=== PATIENT | male | born 1945 | race Two or more races ===

== ENCOUNTER 2020-05-24 08:53 | Day surgery (SDC) | payer MEDICARE, MEDICAID ==
[~2020-05-24] VITALS: Ht 167.6 cm; Wt 81.7 kg
[2020-05-24] VITALS (10 sets, daily range): BP systolic 88–128; BP diastolic 41–60
[~2020-05-24 08:53] MED LIST: ATOR40TA72 PO; BENA20TA82 PO; COL0.6T PO; FURO-149 PO; GABA300C PO; GLIP5TAB13 PO; LINA5TAB4 PO; METO-395 PO; PANT40TA54 PO; POTA8CAP20 PO
[2020-05-24] MEDS ORDERED: albumin 25% 100mL bottle x 1 IV PRN (09:30)
[2020-05-24] MEDS ORDERED: normal saline 1000ml 1,000 ML IV PRN (09:30)
[2020-05-24] MEDS ORDERED: OXYC1TAB17 PO (12:07)
[2020-05-24] MEDS ORDERED: PANT40TA54 PO (12:07)
[2020-05-24] MEDS ORDERED: GABA300C PO (12:07)
[2020-05-24] MEDS ORDERED: METO-395 PO (12:07)
[2020-05-24] MEDS ORDERED: TAMSULOSIN PO (12:07)
[2020-05-24] MEDS ORDERED: GLIP5TAB13 PO (12:07)
[2020-05-24] MEDS ORDERED: COLC0.6T72 PO (12:07)
[2020-05-24] MEDS ORDERED: FLO0.4C PO (12:08)
[2020-05-24] MEDS ORDERED: ASPI-1264 PO (12:10)
== END 2020-05-24 11:45 | disposition home or self-care (01) ==
LOC: SSTAY O 08:53
PROVIDERS: ATTEND Radiology Vascular & Interventional Radiology
DX: R18.8 Other ascites (principal); K74.60 Unspecified cirrhosis of liver; I11.0 Hypertensive heart disease with heart failure; I50.9 Heart failure, unspecified; J44.9 Chronic obstructive pulmonary disease, unspecified; D64.9 Anemia, unspecified; I25.10 Atherosclerotic heart disease of native coronary artery without angina pectoris; I27.20 Pulmonary hypertension, unspecified; E11.40 Type 2 diabetes mellitus with diabetic neuropathy, unspecified; M10.9 Gout, unspecified; Z95.1 Presence of aortocoronary bypass graft; Z79.899 Other long term (current) drug therapy; Z79.84 Long term (current) use of oral hypoglycemic drugs
CPT/HCPCS: 49083; P9047

== ENCOUNTER 2020-06-08 08:10 | Day surgery (SDC) | payer MEDICARE, MEDICAID ==
[~2020-06-08] VITALS: Ht 167.6 cm; Wt 81.1 kg
[~2020-06-08 08:10] MED LIST changes: +ASPI-1264 PO; -COL0.6T PO; +COLC0.6T72 PO; +FLO0.4C PO; -LINA5TAB4 PO; +OXYC1TAB17 PO
[2020-06-08 08:40] VITALS: BP 147/73
[2020-06-08] MEDS ORDERED: albumin 25% 100mL bottle x 1 IV PRN (08:50)
[2020-06-08 09:36] VITALS: BP 161/79
[2020-06-08 09:45] VITALS: BP 154/69
[2020-06-08 10:00] VITALS: BP 152/68
[2020-06-08 10:10] VITALS: BP 153/66
== END 2020-06-08 10:15 | disposition home or self-care (01) ==
LOC: SSTAY O 08:10
PROVIDERS: ATTEND Radiology Diagnostic Radiology
DX: R18.8 Other ascites (principal); K74.60 Unspecified cirrhosis of liver; J44.9 Chronic obstructive pulmonary disease, unspecified; D64.9 Anemia, unspecified; I25.10 Atherosclerotic heart disease of native coronary artery without angina pectoris; I11.0 Hypertensive heart disease with heart failure; I50.9 Heart failure, unspecified; E78.5 Hyperlipidemia, unspecified; Z99.2 Dependence on renal dialysis; E11.40 Type 2 diabetes mellitus with diabetic neuropathy, unspecified; M10.9 Gout, unspecified; Z87.19 Personal history of other diseases of the digestive system; Z95.1 Presence of aortocoronary bypass graft; Z79.899 Other long term (current) drug therapy; Z79.84 Long term (current) use of oral hypoglycemic drugs
CPT/HCPCS: 49083

== ENCOUNTER 2020-06-15 08:15 | Day surgery (SDC) | payer MEDICARE, MEDICAID ==
[~2020-06-15] VITALS: Ht 167.6 cm; Wt 76.8 kg
[2020-06-15 08:38] VITALS: BP 157/74
[2020-06-15] MEDS ORDERED: albumin 25% 100mL bottle x 1 IV PRN (08:40)
== END 2020-06-15 09:50 | disposition home or self-care (01) ==
LOC: SSTAY O 08:15
PROVIDERS: ATTEND Radiology Diagnostic Radiology
DX: R18.8 Other ascites (principal); Z53.8 Procedure and treatment not carried out for other reasons; R14.0 Abdominal distension (gaseous); J44.9 Chronic obstructive pulmonary disease, unspecified; D64.9 Anemia, unspecified; E11.9 Type 2 diabetes mellitus without complications; I25.10 Atherosclerotic heart disease of native coronary artery without angina pectoris; I11.0 Hypertensive heart disease with heart failure; I50.9 Heart failure, unspecified; E78.5 Hyperlipidemia, unspecified; I27.20 Pulmonary hypertension, unspecified; E11.40 Type 2 diabetes mellitus with diabetic neuropathy, unspecified; M10.9 Gout, unspecified; Z95.1 Presence of aortocoronary bypass graft; Z79.899 Other long term (current) drug therapy; Z79.84 Long term (current) use of oral hypoglycemic drugs
CPT/HCPCS: 76705

== ENCOUNTER 2021-06-29 00:34 | Inpatient (IN) | payer MEDICARE, MEDICAID ==
[~2021-06-29] VITALS: Ht 162.6 cm; Wt 76.8 kg
[~2021-06-29 00:34] MED LIST changes: -BENA20TA82 PO; -METO-395 PO; -PANT40TA54 PO; -POTA8CAP20 PO
[2021-06-29] MEDS ORDERED: normal saline 1000ML IV soln IVB ONE (00:45)
[2021-06-29 01:26] LABS: BASOPHILS % (AUTO) 0.9 % (0-1); EOSINOPHILS # (AUTO) 0.1 X10'3 (0-0.9); HEMOGLOBIN 11.1 g/dl (14.0-17.9); LYMPHOCYTES # (AUTO) 0.6 X10'3 (1.1-4.8); MEAN CORPUSCULAR HEMOGLOBIN 32.4 PG (27.0-31.0); MEAN CORPUSCULAR HGB CONC 33.7 g/dL (33.0-36.5); MEAN CORPUSCULAR VOLUME 96.2 FL (78-98); MEAN PLATELET VOLUME 8.3 FL (7.4-10.4); MONOCYTES # (AUTO) 0.4 X10'3 (0-0.9); MONOCYTES % (AUTO) 11.3 % (2-12); NEUTROPHILS # (AUTO) 2.5 X10'3 (1.8-7.7); NEUTROPHILS % (AUTO) 68.8 % (42-75); PLATELET COUNT 160 X10'3 (140-440); RED BLOOD COUNT 3.43 X10'6 (4.70-6.10); RED CELL DISTRIBUTION WIDTH 15.8 % (11.5-14.5); WHITE BLOOD COUNT 3.6 X10'3 (4.5-11.0)
[2021-06-29 01:29] LABS: APTT 28 SECONDS (22-32)
[2021-06-29 01:31] LABS: ALANINE AMINOTRANSFERASE 39 U/L (12-78); ALBUMIN 3.8 G/DL (3.4-5.0); ALBUMIN/GLOBULIN RATIO 1.1 (1.1-1.5); ALKALINE PHOSPHATASE 106 IU/L (46-116); ANION GAP 8 (8-16); ASPARTATE AMINO TRANSFERASE 33 U/L (10-37); BILIRUBIN,TOTAL 0.3 MG/DL (0.1-1.0); BLOOD UREA NITROGEN 66 MG/DL (7-18); BUN/CREATININE RATIO 33.3 (5.4-32.0); CALCIUM 8.5 MG/DL (8.5-10.1); CHLORIDE 104 MMOL/L (99-107); CREATININE 1.98 MG/DL (0.60-1.10); GLUCOSE 170 MG/DL (70-104); SODIUM 133 MMOL/L (135-145); TOTAL CARBON DIOXIDE 21.1 MMOL/L (24-32); TOTAL PROTEIN 7.3 G/DL (6.4-8.2); eGFR 33 ML/MIN
[2021-06-29 01:41] LABS: POTASSIUM 6.8 MMOL/L (3.5-5.1)
[2021-06-29] MEDS ORDERED: insulin regular, human U-100 3ml vial - multi-dose IV ONE (01:50)
[2021-06-29] MEDS ORDERED: sodium bicarbonate (8.4%) 1 mEq/ml syringe IV ONE ×3 (01:50→08:30)
[2021-06-29] MEDS ORDERED: furosemide 40mg/4ml inj IV ONE (01:50)
[2021-06-29] MEDS ORDERED: dextrose 50%-water 50ml dispensing syringe IV ONE ×2 (01:50→08:30)
[2021-06-29] MEDS ORDERED: calcium chloride 100 MG/1 ML inj IV ONE (01:50)
[2021-06-29] MEDS ORDERED: insulin regular, human 10 units/0.1 ml syringe IV ONE ×2 (02:25→08:30)
[2021-06-29] MEDS ORDERED: HYDROcodone/acetaminophen 10/325mg tab PO PRN (03:15)
[2021-06-29] MEDS ORDERED: acetaminophen 325mg tablet PO PRN ×3 (03:15→15:55)
[2021-06-29] MEDS ORDERED: HYDROcodone/acetaminophen 5mg/325mg tablet PO PRN (03:15)
[2021-06-29] MEDS ORDERED: potassium CL 10mEq/100ml bag 100 ML IV PRN (03:15)
[2021-06-29] MEDS ORDERED: magnesium 2GM in 50ml NS 50 ML IV PRN (03:15)
[2021-06-29] MEDS ORDERED: magnesium 4gm in 100ml NS 100 ML IV PRN (03:15)
[2021-06-29] MEDS ORDERED: magnesium hydroxide 30ml (MOM) UD suspension PO PRN ×2 (03:15→15:55)
[2021-06-29] MEDS ORDERED: magnesium Cl slow-release 64mg tablet PO PRN (03:15)
[2021-06-29] MEDS ORDERED: mag hydrox/Alum hydrox/simeth 30ml oral suspension PO PRN (03:15)
[2021-06-29] MEDS ORDERED: potassium Cl 20 mEq SR tablet PO PRN ×2 (03:15)
[2021-06-29] MEDS ORDERED: morphine 2 MG/ML inj. syringe IV PRN (03:15)
[2021-06-29] MEDS ORDERED: insulin Lispro (HumaLOG) vial - multi-dose SQ SCH (03:20)
[2021-06-29] MEDS ORDERED: MESSAGE TO PHARMACY PO ONE (03:20)
[2021-06-29] MEDS ORDERED: DEXTROSE 15 GM of carb/4 tabs (each vial/BOTTLE has 4 tablets) PO PRN ×2 (03:20)
[2021-06-29] MEDS ORDERED: glucagon, human recombinant 1mg kit SUBCUT PRN (03:20)
[2021-06-29] MEDS ORDERED: dextrose 50%-water 50ml dispensing syringe IV PRN ×2 (03:20)
[2021-06-29 03:42] LABS: MAGNESIUM 1.7 MG/DL (1.5-2.4)
[2021-06-29] MEDS: ondansetron/PF 4mg/2ml inj IV PRN (03:57)
[2021-06-29] MEDS: morphine 2 MG/ML inj. syringe IV PRN ×4 (03:58→19:44)
[2021-06-29] MEDS ORDERED: acetylcysteine 200 MG/ml 4ml vial PO ONE (07:40)
[2021-06-29] MEDS ORDERED: sodium polystyrene sulfonate 15gm/60ml oral suspension PO ONE (07:40)
--- NOTE | 2021-06-29 07:47 | NUR ---
SPOKE TO DR EMERSON TEL ORDER FOR GIVING PO MEDS AND THEN KEEP THE PT NPO .ISTAT FOR K+,CONSENT FOR CATHETERIZATION.
[2021-06-29] MEDS ORDERED: sodium bicarbonate (8.4%) inj. 150 ML in dextrose 5%-water 1,000 ML IV ONE (07:50)
[2021-06-29 07:54] LABS: ALANINE AMINOTRANSFERASE 34 U/L (12-78); ALBUMIN 3.4 G/DL (3.4-5.0); ALKALINE PHOSPHATASE 95 IU/L (46-116); ANION GAP 6 (8-16); ASPARTATE AMINO TRANSFERASE 28 U/L (10-37); BILIRUBIN,TOTAL 0.3 MG/DL (0.1-1.0); BLOOD UREA NITROGEN 69 MG/DL (7-18); BUN/CREATININE RATIO 41.8 (5.4-32.0); CHLORIDE 107 MMOL/L (99-107); CREATININE 1.65 MG/DL (0.60-1.10); GLUCOSE 149 MG/DL (70-104); SODIUM 137 MMOL/L (135-145); TOTAL CARBON DIOXIDE 23.8 MMOL/L (24-32); TOTAL PROTEIN 6.7 G/DL (6.4-8.2); eGFR 41 ML/MIN
[2021-06-29 07:58] LABS: POTASSIUM 6.3 MMOL/L (3.5-5.1)
[2021-06-29] MEDS: docusate sod 100mg capsule PO SCH ×2 (08:00→19:42)
[2021-06-29] MEDS: K and/or MAG REPLACEMENT MC SCH ×2 (08:00→19:08)
[2021-06-29] MEDS: heparin, porcine 5000 units/ml vial SQ SCH ×2 (08:00→19:42)
[2021-06-29 09:14] LABS: ALANINE AMINOTRANSFERASE 38 U/L (12-78); ALBUMIN 3.7 G/DL (3.4-5.0); ALKALINE PHOSPHATASE 105 IU/L (46-116); ANION GAP 8 (8-16); ASPARTATE AMINO TRANSFERASE 32 U/L (10-37); BILIRUBIN,TOTAL 0.3 MG/DL (0.1-1.0); BLOOD UREA NITROGEN 66 MG/DL (7-18); BUN/CREATININE RATIO 39.3 (5.4-32.0); CALCIUM 9.4 MG/DL (8.5-10.1); CHLORIDE 107 MMOL/L (99-107); CREATININE 1.68 MG/DL (0.60-1.10); GLUCOSE 159 MG/DL (70-104); SODIUM 139 MMOL/L (135-145); TOTAL CARBON DIOXIDE 23.9 MMOL/L (24-32); TOTAL PROTEIN 7.3 G/DL (6.4-8.2); eGFR 40 ML/MIN
[2021-06-29 09:17] LABS: POTASSIUM 6.3 MMOL/L (3.5-5.1)
[2021-06-29 11:56] LABS: ALBUMIN 3.3 G/DL (3.4-5.0); ANION GAP 12 (8-16); BLOOD UREA NITROGEN 64 MG/DL (7-18); BUN/CREATININE RATIO 38.1 (5.4-32.0); CALCIUM 9.3 MG/DL (8.5-10.1); CHLORIDE 102 MMOL/L (99-107); CREATININE 1.68 MG/DL (0.60-1.10); GLUCOSE 216 MG/DL (70-104); MAGNESIUM 1.6 MG/DL (1.5-2.4); POTASSIUM 5.4 MMOL/L (3.5-5.1); SODIUM 138 MMOL/L (135-145); TOTAL CARBON DIOXIDE 24.3 MMOL/L (24-32); eGFR 40 ML/MIN
[2021-06-29] MEDS: acetylcysteine 200 MG/ml 4ml vial PO SCH (12:43)
[2021-06-29] MEDS: HYDROmorphone inj. 0.5 MG/0.5 ML DISP.SYRIN IV PRN ×2 (12:43→15:55)
[2021-06-29] MEDS ORDERED: COLC0.6T72 PO (13:10)
[2021-06-29] MEDS ORDERED: SPIR25TA5 PO (13:10)
[2021-06-29] MEDS ORDERED: ASPI-1264 PO (13:11)
[2021-06-29] MEDS ORDERED: ATOR40TA72 PO (13:11)
[2021-06-29] MEDS ORDERED: FERR324T PO (13:12)
[2021-06-29] MEDS ORDERED: ISOS30TA84 PO (13:12)
[2021-06-29] MEDS ORDERED: FLO0.4C PO (13:12)
[2021-06-29] MEDS ORDERED: FINA5TAB11 PO (13:12)
[2021-06-29] MEDS ORDERED: BENA20TA83 PO (13:13)
[2021-06-29 14:04] LABS: ISTAT HGB ART 9.9 g/dl (14.0-18.0); ISTAT Hct ART 29 %PCV (42-52); ISTAT O2 SATURATION ARTERIAL 94 % (95-98); ISTAT SOURCE ART
[2021-06-29] MEDS ORDERED: iohexol 350MG/ML 100ml bottle IV ONE ×2 (14:14→14:35)
[2021-06-29] MEDS ORDERED: iohexol 350 MG/ML 50ML vial IV ONE (14:16)
[2021-06-29] MEDS ORDERED: heparin 25,000 UNIT/250ml bag 250 ML IV ONE (14:44)
[2021-06-29] MEDS ORDERED: heparin 1,000 UNITS/NS 500ml 500 ML ONE (14:45)
[2021-06-29] MEDS ORDERED: FURO40TA4 PO (15:38)
[2021-06-29] MEDS ORDERED: GABA300C PO (15:38)
[2021-06-29 15:46] VITALS: BP 137/48
[2021-06-29] MEDS ORDERED: sodium bicarbonate (8.4%) inj. 150 MEQ in dextrose 5%-water 1,000 ML IV ONE (15:55)
[2021-06-29] MEDS ORDERED: acetylcysteine 200 MG/ml 4ml vial PO PRN (15:56)
[2021-06-29] MEDS ORDERED: ERGO500056 PO (16:00)
[2021-06-29 16:15] VITALS: BP 120/33
[2021-06-29] MEDS ORDERED: ALLO300T8 PO (16:16)
[2021-06-29 16:30] VITALS: BP 119/57
[2021-06-29 16:45] VITALS: BP 129/77
--- NOTE | 2021-06-29 16:51 | NUR ---
Correcting charting for radial cath care. Gaby is on the left radial, not right Addendum: 06/29/21 at 1653 by Franc Boggs RN Amended: Links added.
[2021-06-29 18:00] VITALS: BP 129/49
[2021-06-29] MEDS: gabapentin 300mg capsule PO SCH (19:42)
[2021-06-29] MEDS: tamsulosin 0.4mg capsule PO SCH (19:42)
[2021-06-29] MEDS: furosemide 40mg tablet PO SCH (19:43)
[2021-06-29] MEDS: lisinopril 20mg tablet PO SCH (19:44)
[2021-06-29 22:00] VITALS: BP 129/60
[2021-06-29] MEDS: HYDROcodone/acetaminophen 10/325mg tab PO PRN (22:13)
[2021-06-29] MEDS: insulin glargine (Lantus) pen - multi-dose SQ SCH (22:15)
[2021-06-30] VITALS (14 sets, daily range): BP systolic 106–155; BP diastolic 37–90
[2021-06-30] MEDS: OXAZEpam 15mg capsule PO PRN (01:25)
[2021-06-30] MEDS: HYDROmorphone inj. 0.5 MG/0.5 ML DISP.SYRIN IV PRN ×2 (01:27→13:30)
[2021-06-30 06:12] LABS: BASOPHILS % (AUTO) 0.8 % (0-1); EOSINOPHILS # (AUTO) 0.1 X10'3 (0-0.9); EOSINOPHILS % (AUTO) 2.9 % (0-6); HEMATOCRIT 29.4 % (42.0-52.0); HEMOGLOBIN 9.9 g/dl (14.0-17.9); LYMPHOCYTES # (AUTO) 0.5 X10'3 (1.1-4.8); LYMPHOCYTES % (AUTO) 16.7 % (21-51); MEAN CORPUSCULAR HEMOGLOBIN 32.2 PG (27.0-31.0); MEAN CORPUSCULAR HGB CONC 33.6 g/dL (33.0-36.5); MEAN CORPUSCULAR VOLUME 95.9 FL (78-98); MEAN PLATELET VOLUME 8.4 FL (7.4-10.4); MONOCYTES # (AUTO) 0.3 X10'3 (0-0.9); MONOCYTES % (AUTO) 10.8 % (2-12); NEUTROPHILS % (AUTO) 68.8 % (42-75); PLATELET COUNT 145 X10'3 (140-440); RED BLOOD COUNT 3.07 X10'6 (4.70-6.10); RED CELL DISTRIBUTION WIDTH 16.3 % (11.5-14.5); WHITE BLOOD COUNT 2.9 X10'3 (4.5-11.0)
[2021-06-30 06:43] LABS: % IRON SATURATION 23 % (11-46); IRON 59 UG/DL (53-167); TOTAL IRON BINDING CAPACITY 255 UG/DL (259-388)
[2021-06-30 06:53] LABS: ANISOCYTOSIS 1+; PLATELET ESTIMATE NORMAL; TOTAL CELLS COUNTED 100
[2021-06-30 06:54] LABS: ALANINE AMINOTRANSFERASE 31 U/L (12-78); ALBUMIN 3.2 G/DL (3.4-5.0); ALBUMIN/GLOBULIN RATIO 1.1 (1.1-1.5); ALKALINE PHOSPHATASE 87 IU/L (46-116); ANION GAP 6 (8-16); ASPARTATE AMINO TRANSFERASE 28 U/L (10-37); BILIRUBIN,TOTAL 0.3 MG/DL (0.1-1.0); BLOOD UREA NITROGEN 60 MG/DL (7-18); CALCIUM 8.5 MG/DL (8.5-10.1); CHLORIDE 106 MMOL/L (99-107); CHOL/HDL RATIO 2.3 (0.00-4.99); CHOLESTEROL 88 MG/DL (0-200); CREATININE 1.43 MG/DL (0.60-1.10); FERRITIN 260 NG/ML (26-388); GLUCOSE 109 MG/DL (70-104); HDL CHOLESTEROL 39 MG/DL (35-60); LDL CHOLESTEROL 35 MG/DL (50-100); POTASSIUM 5.6 MMOL/L (3.5-5.1); SODIUM 142 MMOL/L (135-145); TOTAL CARBON DIOXIDE 30.5 MMOL/L (24-32); TOTAL PROTEIN 6.2 G/DL (6.4-8.2); TRIGLYCERIDES 96 MG/DL (20-135); eGFR 48 ML/MIN
[2021-06-30] MEDS: atorvastatin 20mg tablet PO SCH (07:48)
[2021-06-30] MEDS: tamsulosin 0.4mg capsule PO SCH ×2 (07:48→20:26)
[2021-06-30] MEDS: HYDROcodone/acetaminophen 10/325mg tab PO PRN ×3 (07:48→21:20)
[2021-06-30] MEDS: clopidogrel 75mg tablet PO SCH (07:48)
[2021-06-30] MEDS: aspirin 325mg tablet PO SCH (07:48)
[2021-06-30] MEDS: furosemide 40mg tablet PO SCH ×2 (07:48→20:26)
[2021-06-30] MEDS: gabapentin 300mg capsule PO SCH ×3 (07:48→21:20)
[2021-06-30] MEDS: docusate sod 100mg capsule PO SCH ×2 (07:48→20:26)
[2021-06-30] MEDS: colchicine 0.6mg tablet PO SCH (07:49)
[2021-06-30] MEDS: K and/or MAG REPLACEMENT MC SCH ×2 (08:00→20:00)
[2021-06-30] MEDS: acetylcysteine 200 MG/ml 4ml vial PO SCH ×2 (08:00→23:09)
[2021-06-30] MEDS: ferrous gluconate 324mg tablet PO SCH (08:04)
[2021-06-30] MEDS: isosorbide mononitrate 30mg tab.SR.24H PO SCH (08:04)
[2021-06-30] MEDS: lisinopril 20mg tablet PO SCH ×2 (08:06→20:29)
[2021-06-30] MEDS: heparin, porcine 5000 units/ml vial SQ SCH ×2 (08:07→20:00)
[2021-06-30] MEDS: finasteride 5mg tablet PO SCH (09:53)
--- NOTE | 2021-06-30 11:13 | NUR ---
Noted pt with T2DM, well controlled with A1c 7.0%. Written DM education with RD contact information placed in patient's chart. Will remain available. Addendum: 06/30/21 at [address] Amended: Links added.
[2021-06-30] MEDS ORDERED: LIDOcaine 2% 10ml TOPICAL JELLY (Urojet) TP ONE (22:10)
[2021-06-30] MEDS ORDERED: DEXTROSE 15 GM of carb/4 tabs (each vial/BOTTLE has 4 tablets) PO PRN ×2 (22:10)
[2021-06-30] MEDS ORDERED: dextrose 50%-water 50ml dispensing syringe IV PRN ×2 (22:10)
[2021-06-30] MEDS ORDERED: normal saline 1000ml 1,000 ML IV SCH (22:10)
[2021-06-30] MEDS ORDERED: MESSAGE TO PHARMACY PO ONE (22:10)
[2021-06-30] MEDS ORDERED: insulin Lispro (HumaLOG) vial - multi-dose SQ SCH (22:10)
[2021-06-30] MEDS ORDERED: glucagon, human recombinant 1mg kit SUBCUT PRN (22:10)
[2021-06-30] MEDS ORDERED: normal saline 1000ml 1,000 ML IV ONE (22:54)
[2021-06-30] MEDS: insulin glargine (Lantus) pen - multi-dose SQ SCH (23:13)
[2021-07-01] VITALS (8 sets, daily range): BP systolic 116–150; BP diastolic 42–56
[2021-07-01] MEDS: HYDROmorphone inj. 0.5 MG/0.5 ML DISP.SYRIN IV PRN ×3 (00:54→16:57)
[2021-07-01] MEDS: HYDROcodone/acetaminophen 10/325mg tab PO PRN (05:46)
--- NOTE | 2021-07-01 06:43 | NUR ---
Problems reprioritized. Patient report given, questions answered & plan of care reviewed with Main TURNER.
[2021-07-01 06:49] LABS: BASOPHILS % (AUTO) 0.5 % (0-1); EOSINOPHILS # (AUTO) 0.1 X10'3 (0-0.9); EOSINOPHILS % (AUTO) 4.1 % (0-6); HEMOGLOBIN 8.8 g/dl (14.0-17.9); LYMPHOCYTES # (AUTO) 0.5 X10'3 (1.1-4.8); LYMPHOCYTES % (AUTO) 16.3 % (21-51); MEAN CORPUSCULAR HEMOGLOBIN 31.4 PG (27.0-31.0); MEAN CORPUSCULAR HGB CONC 32.5 g/dL (33.0-36.5); MEAN CORPUSCULAR VOLUME 96.9 FL (78-98); MEAN PLATELET VOLUME 8.6 FL (7.4-10.4); MONOCYTES # (AUTO) 0.4 X10'3 (0-0.9); MONOCYTES % (AUTO) 12.4 % (2-12); NEUTROPHILS # (AUTO) 2.2 X10'3 (1.8-7.7); NEUTROPHILS % (AUTO) 66.7 % (42-75); PLATELET COUNT 137 X10'3 (140-440); RED BLOOD COUNT 2.79 X10'6 (4.70-6.10); WHITE BLOOD COUNT 3.3 X10'3 (4.5-11.0)
[2021-07-01 07:27] LABS: ALANINE AMINOTRANSFERASE 26 U/L (12-78); ALBUMIN 2.9 G/DL (3.4-5.0); ALKALINE PHOSPHATASE 76 IU/L (46-116); ANION GAP 8 (8-16); ASPARTATE AMINO TRANSFERASE 24 U/L (10-37); BILIRUBIN,TOTAL 0.3 MG/DL (0.1-1.0); BLOOD UREA NITROGEN 63 MG/DL (7-18); CALCIUM 7.9 MG/DL (8.5-10.1); CHLORIDE 103 MMOL/L (99-107); CHOL/HDL RATIO 2.3 (0.00-4.99); CHOLESTEROL 73 MG/DL (0-200); CREATININE 2.52 MG/DL (0.60-1.10); GLUCOSE 118 MG/DL (70-104); HDL CHOLESTEROL 32 MG/DL (35-60); LDL CHOLESTEROL 30 MG/DL (50-100); POTASSIUM 5.9 MMOL/L (3.5-5.1); SODIUM 139 MMOL/L (135-145); TOTAL CARBON DIOXIDE 28.3 MMOL/L (24-32); TOTAL PROTEIN 5.8 G/DL (6.4-8.2); TRIGLYCERIDES 110 MG/DL (20-135); eGFR 25 ML/MIN
[2021-07-01] MEDS: docusate sod 100mg capsule PO SCH ×2 (08:00→20:00)
[2021-07-01] MEDS: K and/or MAG REPLACEMENT MC SCH ×2 (08:00→19:10)
[2021-07-01 09:55] LABS: ISTAT Hct MIX 30 %PCV (42-52); ISTAT O2 SATURATION MIX VENOUS 66 % (60-80); ISTAT SOURCE VEN
[2021-07-01] MEDS: aspirin 325mg tablet PO SCH (10:04)
[2021-07-01] MEDS: isosorbide mononitrate 30mg tab.SR.24H PO SCH (10:04)
[2021-07-01] MEDS: atorvastatin 20mg tablet PO SCH (10:04)
[2021-07-01] MEDS: ferrous gluconate 324mg tablet PO SCH (10:05)
[2021-07-01] MEDS: clopidogrel 75mg tablet PO SCH (10:05)
[2021-07-01] MEDS: tamsulosin 0.4mg capsule PO SCH ×2 (10:05→19:12)
[2021-07-01 10:20] LABS: ISTAT K 4.4 mmol/L (3.5-5.1)
[2021-07-01 10:21] LABS: ISTAT CREATININE 1.2 mg/dL (0.8-1.3); POC BUN/CREATININE RATIO 40.8 (5.4-32.0)
[2021-07-01 10:23] LABS: ISTAT HGB 8.8 g/dl (14.0-18.0); ISTAT IONIZED CALCIUM 0.93 mmol/L (1.03-1.32)
[2021-07-01] MEDS: heparin, porcine 5000 units/ml vial SQ SCH ×2 (10:23→19:13)
[2021-07-01] MEDS: colchicine 0.6mg tablet PO SCH (10:24)
[2021-07-01] MEDS: gabapentin 300mg capsule PO SCH ×3 (10:24→21:25)
[2021-07-01] MEDS: finasteride 5mg tablet PO SCH (10:25)
[2021-07-01] MEDS: acetylcysteine 200 MG/ml 4ml vial PO SCH ×2 (10:25→19:18)
[2021-07-01] MEDS: normal saline 1000ml 1,000 ML IV SCH ×2 (10:26→19:23)
--- NOTE | 2021-07-01 18:00 | NUR ---
Patient in room PCU 3018. I have received report from МАРИНА TURNER and had the opportunity to ask questions and assume patient care.
[2021-07-01] MEDS ORDERED: insulin glargine (Lantus) pen - multi-dose SQ SCH (21:00)
[2021-07-01] MEDS: insulin glargine (Lantus) pen - multi-dose SQ SCH (21:31)
[2021-07-02 02:00] VITALS: BP 136/65
[2021-07-02] MEDS: HYDROcodone/acetaminophen 10/325mg tab PO PRN ×3 (03:11→19:20)
[2021-07-02] MEDS: normal saline 1000ml 1,000 ML IV SCH (05:55)
[2021-07-02 06:00] VITALS: BP 99/49
[2021-07-02 06:32] LABS: ALANINE AMINOTRANSFERASE 25 U/L (12-78); ALBUMIN 2.8 G/DL (3.4-5.0); ALBUMIN/GLOBULIN RATIO 0.9 (1.1-1.5); ALKALINE PHOSPHATASE 80 IU/L (46-116); ANION GAP 11 (8-16); ASPARTATE AMINO TRANSFERASE 26 U/L (10-37); BILIRUBIN,TOTAL 0.3 MG/DL (0.1-1.0); BLOOD UREA NITROGEN 75 MG/DL (7-18); CALCIUM 7.9 MG/DL (8.5-10.1); CHLORIDE 98 MMOL/L (99-107); CREATININE 4.41 MG/DL (0.60-1.10); GLUCOSE 110 MG/DL (70-104); SODIUM 133 MMOL/L (135-145); TOTAL CARBON DIOXIDE 23.7 MMOL/L (24-32); TOTAL PROTEIN 5.8 G/DL (6.4-8.2); eGFR 13 ML/MIN
--- NOTE | 2021-07-02 06:34 | NUR ---
Problems reprioritized. Patient report given, questions answered & plan of care reviewed with KIRSTIN TURNER.
[2021-07-02 06:36] LABS: POTASSIUM 7.2 MMOL/L (3.5-5.1)
[2021-07-02 06:37] LABS: BASOPHILS % (AUTO) 0.4 % (0-1); EOSINOPHILS # (AUTO) 0.1 X10'3 (0-0.9); EOSINOPHILS % (AUTO) 2.2 % (0-6); HEMATOCRIT 26.1 % (42.0-52.0); HEMOGLOBIN 8.7 g/dl (14.0-17.9); LYMPHOCYTES # (AUTO) 0.4 X10'3 (1.1-4.8); LYMPHOCYTES % (AUTO) 8.4 % (21-51); MEAN CORPUSCULAR HEMOGLOBIN 32.6 PG (27.0-31.0); MEAN CORPUSCULAR HGB CONC 33.1 g/dL (33.0-36.5); MEAN CORPUSCULAR VOLUME 98.3 FL (78-98); MEAN PLATELET VOLUME 8.2 FL (7.4-10.4); MONOCYTES # (AUTO) 0.4 X10'3 (0-0.9); MONOCYTES % (AUTO) 8.3 % (2-12); NEUTROPHILS # (AUTO) 3.5 X10'3 (1.8-7.7); NEUTROPHILS % (AUTO) 80.7 % (42-75); PLATELET COUNT 114 X10'3 (140-440); RED BLOOD COUNT 2.66 X10'6 (4.70-6.10); RED CELL DISTRIBUTION WIDTH 15.8 % (11.5-14.5); WHITE BLOOD COUNT 4.3 X10'3 (4.5-11.0)
--- NOTE | 2021-07-02 07:28 | NUR ---
Marla Phillip K+= 7.2 Lab says specimen in good. 97.9 67 18 98 RA 99/49 Dr. Petty was notified and ordered Hyperkalemia protocol However, We need specifics for Hyperkalemia treatment. Thank You [facility]. [id number]
[2021-07-02] MEDS: tamsulosin 0.4mg capsule PO SCH ×2 (07:31→19:20)
[2021-07-02] MEDS: gabapentin 300mg capsule PO SCH (07:31)
[2021-07-02] MEDS: docusate sod 100mg capsule PO SCH ×2 (07:31→19:20)
[2021-07-02] MEDS: ferrous gluconate 324mg tablet PO SCH (07:31)
[2021-07-02] MEDS: atorvastatin 20mg tablet PO SCH (07:32)
[2021-07-02] MEDS: clopidogrel 75mg tablet PO SCH (07:33)
[2021-07-02] MEDS ORDERED: sodium bicarbonate (8.4%) 1 mEq/ml syringe IV ONE (07:50)
[2021-07-02] MEDS ORDERED: sodium bicarbonate (8.4%) inj. 100 MEQ in sodium chloride 0.45% 900 ML IV SCH (07:50)
[2021-07-02] MEDS ORDERED: furosemide 40mg/4ml inj IV SCH (08:00)
[2021-07-02] MEDS: K and/or MAG REPLACEMENT MC SCH ×2 (08:00→19:21)
[2021-07-02] MEDS ORDERED: sodium bicarbonate (8.4%) inj. 100 MEQ in sodium chloride 0.45% 1,000 ML IV SCH (08:05)
[2021-07-02 08:55] LABS: CLARITY,URINE SLIGHTLY CLOUDY (Clear); COLOR,URINE YELLOW (Yellow); GLUCOSE, URINE NEGATIVE (Neg); KETONES,URINE TRACE mg/dl (Neg); LEUKOCYTE ESTERASE ,URINE SMALL (Neg); NITRITES, URINE NEGATIVE (Neg); OCCULT BLOOD,URINE NEGATIVE (Neg); PH,URINE 5.5 (4.8-8.0); PROTEIN,URINE TRACE mg/dl (Neg); UROBILINOGEN,URINE 0.2 E.U/dL (0.2-1.0)
[2021-07-02 09:01] LABS: UA COLLECTION TYPE CLN CATCH MIDSTREAM
[2021-07-02 09:02] LABS: BACTERIA,URINE NONE SEEN /HPF (Neg); MUCUS STRANDS NONE SEEN /LPF (Neg); RBC,URINE NONE SEEN /HPF (0-2); SQUAMOUS EPITHELIAL CELL,UR NONE SEEN /LPF (FEW); WBC,URINE 0-4 /HPF (0-4)
[2021-07-02 09:16] LABS: TOTAL PROTEIN,URINE RANDOM 50.9 MG/DL
[2021-07-02 09:29] LABS: UA EOSINOPHILS RARE EOS /HPF
[2021-07-02] MEDS: acetylcysteine 200 MG/ml 4ml vial PO SCH (09:48)
[2021-07-02] MEDS: finasteride 5mg tablet PO SCH (09:48)
[2021-07-02] MEDS: heparin, porcine 5000 units/ml vial SQ SCH ×2 (09:56→19:19)
[2021-07-02] MEDS: isosorbide mononitrate 30mg tab.SR.24H PO SCH (09:58)
[2021-07-02] MEDS: aspirin 325mg tablet PO SCH (09:58)
[2021-07-02] MEDS: fludrocortisone acetate 0.1mg tablet PO SCH ×2 (09:59→19:20)
[2021-07-02] MEDS: HYDROmorphone inj. 0.5 MG/0.5 ML DISP.SYRIN IV PRN (10:05)
[2021-07-02 11:00] VITALS: BP 105/95
[2021-07-02 12:24] LABS: ALBUMIN 2.5 G/DL (3.4-5.0); ANION GAP 11 (8-16); BLOOD UREA NITROGEN 83 MG/DL (7-18); BUN/CREATININE RATIO 16.9 (5.4-32.0); CHLORIDE 98 MMOL/L (99-107); CREATININE 4.92 MG/DL (0.60-1.10); GLUCOSE 165 MG/DL (70-104); SODIUM 134 MMOL/L (135-145); TOTAL CARBON DIOXIDE 24.9 MMOL/L (24-32); eGFR 12 ML/MIN
[2021-07-02 12:25] LABS: POTASSIUM 6.7 MMOL/L (3.5-5.1)
[2021-07-02] MEDS: furosemide 40mg/4ml inj IV SCH ×2 (13:57→20:45)
[2021-07-02] MEDS: colchicine 0.6mg tablet PO SCH (14:13)
[2021-07-02 15:00] VITALS: BP 124/46
[2021-07-02] MEDS: albuterol 2.5 MG/3 ML nebule NEB SCH ×3 (15:07→23:40)
[2021-07-02 18:30] VITALS: BP 128/44
--- NOTE | 2021-07-02 18:44 | NUR ---
Patient in room U 3018. I have received report from YUE FULTON and had the opportunity to ask questions and assume patient care. Addendum: 07/02/21 at 1845 by Peggy Carter RN Amended: Links added.
[2021-07-02 20:45] LABS: ALBUMIN 2.8 G/DL (3.4-5.0); ANION GAP 16 (8-16); BLOOD UREA NITROGEN 88 MG/DL (7-18); BUN/CREATININE RATIO 16.1 (5.4-32.0); CHLORIDE 94 MMOL/L (99-107); CREATININE 5.48 MG/DL (0.60-1.10); GLUCOSE 161 MG/DL (70-104); SODIUM 132 MMOL/L (135-145); TOTAL CARBON DIOXIDE 22.4 MMOL/L (24-32); eGFR 10 ML/MIN
[2021-07-02 20:51] LABS: POTASSIUM 6.9 MMOL/L (3.5-5.1)
--- NOTE | 2021-07-02 21:25 | NUR ---
pt given 6 units lantus due to increase in his bun and creatine and severe decrease in his gfr now down to 12.
[2021-07-02] MEDS: insulin glargine (Lantus) pen - multi-dose SQ SCH (21:31)
[2021-07-02] MEDS ORDERED: PATIROMER CALCIUM SORBITEX 8.4 GM POWD.PACK PO ONE (21:35)
[2021-07-02 22:00] VITALS: BP 106/58
--- NOTE | 2021-07-02 22:00 | NUR ---
pt took the 3 packets of valkadi Petty ordered to bring potassium down.
--- NOTE | 2021-07-02 23:26 | NUR ---
resting on his side without changes.
[2021-07-03] VITALS (7 sets, daily range): BP systolic 91–144; BP diastolic 42–68
[2021-07-03] MEDS: albuterol 2.5 MG/3 ML nebule NEB SCH ×5 (03:05→19:53)
--- NOTE | 2021-07-03 05:51 | NUR ---
resting on his side eyes closed
--- NOTE | 2021-07-03 06:12 | NUR ---
Problems reprioritized. Patient report given, questions answered & plan of care reviewed with YUE GUIDO. Addendum: 07/03/21 at 0613 by Peggy Carter RN Amended: Links added.
--- NOTE | 2021-07-03 06:30 | NUR ---
Patient in room PCU 3018. I have received report from YUE Woods and had the opportunity to ask questions and assume patient care.
[2021-07-03 07:20] LABS: BASOPHILS % (AUTO) 0.3 % (0-1); EOSINOPHILS # (AUTO) 0.1 X10'3 (0-0.9); EOSINOPHILS % (AUTO) 1.9 % (0-6); HEMATOCRIT 25.1 % (42.0-52.0); HEMOGLOBIN 8.5 g/dl (14.0-17.9); LYMPHOCYTES # (AUTO) 0.4 X10'3 (1.1-4.8); LYMPHOCYTES % (AUTO) 8.8 % (21-51); MEAN CORPUSCULAR HEMOGLOBIN 32.5 PG (27.0-31.0); MEAN CORPUSCULAR HGB CONC 33.9 g/dL (33.0-36.5); MEAN CORPUSCULAR VOLUME 95.9 FL (78-98); MEAN PLATELET VOLUME 8.5 FL (7.4-10.4); MONOCYTES # (AUTO) 0.5 X10'3 (0-0.9); MONOCYTES % (AUTO) 11.1 % (2-12); NEUTROPHILS # (AUTO) 3.3 X10'3 (1.8-7.7); NEUTROPHILS % (AUTO) 77.9 % (42-75); PLATELET COUNT 112 X10'3 (140-440); RED BLOOD COUNT 2.62 X10'6 (4.70-6.10); RED CELL DISTRIBUTION WIDTH 15.8 % (11.5-14.5); WHITE BLOOD COUNT 4.2 X10'3 (4.5-11.0)
[2021-07-03 07:35] LABS: ALANINE AMINOTRANSFERASE 25 U/L (12-78); ALBUMIN 2.9 G/DL (3.4-5.0); ALBUMIN/GLOBULIN RATIO 0.9 (1.1-1.5); ALKALINE PHOSPHATASE 78 IU/L (46-116); ANION GAP 12 (8-16); ASPARTATE AMINO TRANSFERASE 27 U/L (10-37); BILIRUBIN,TOTAL 0.3 MG/DL (0.1-1.0); BLOOD UREA NITROGEN 97 MG/DL (7-18); BUN/CREATININE RATIO 15.6 (5.4-32.0); CHLORIDE 97 MMOL/L (99-107); CREATININE 6.22 MG/DL (0.60-1.10); GLUCOSE 112 MG/DL (70-104); LACTATE DEHYDROGENASE 214 U/L (85-227); SODIUM 134 MMOL/L (135-145); TOTAL CARBON DIOXIDE 25.3 MMOL/L (24-32); eGFR 9 ML/MIN
[2021-07-03 07:44] LABS: POTASSIUM 6.9 MMOL/L (3.5-5.1)
--- NOTE | 2021-07-03 07:47 | NUR ---
Paged hospitalist: PAGER ID: [phone] MESSAGE: Room: [facility]: Derek: Potassium is 6.9. -YUE Junior [id number]
[2021-07-03] MEDS: heparin, porcine 5000 units/ml vial SQ SCH ×2 (08:00→19:42)
[2021-07-03] MEDS: K and/or MAG REPLACEMENT MC SCH ×2 (08:00→20:00)
[2021-07-03] MEDS: HYDROmorphone inj. 0.5 MG/0.5 ML DISP.SYRIN IV PRN ×2 (08:17→12:39)
[2021-07-03] MEDS: colchicine 0.6mg tablet PO SCH (08:18)
[2021-07-03] MEDS: fludrocortisone acetate 0.1mg tablet PO SCH ×2 (08:18→19:42)
[2021-07-03] MEDS: finasteride 5mg tablet PO SCH (08:18)
[2021-07-03] MEDS: furosemide 40mg/4ml inj IV SCH ×3 (08:18→21:00)
[2021-07-03] MEDS: aspirin 325mg tablet PO SCH (08:18)
[2021-07-03] MEDS: atorvastatin 20mg tablet PO SCH (08:19)
[2021-07-03] MEDS: docusate sod 100mg capsule PO SCH ×2 (08:19→19:44)
[2021-07-03] MEDS: tamsulosin 0.4mg capsule PO SCH ×2 (08:19→19:42)
[2021-07-03] MEDS: clopidogrel 75mg tablet PO SCH (08:19)
[2021-07-03] MEDS: ferrous gluconate 324mg tablet PO SCH (08:20)
[2021-07-03] MEDS: isosorbide mononitrate 30mg tab.SR.24H PO SCH (08:20)
[2021-07-03] MEDS ORDERED: heparin 1,000unit/ml 10ml vial 10 ML IV ONE (08:35)
[2021-07-03] MEDS ORDERED: EPOETIN ALFA-EPBX 20,000 UNIT/ML 1 ML MDV IV ONE (08:35)
[2021-07-03] MEDS ORDERED: heparin 1,000 units/ml 10ml inj IV ONE ×2 (08:35→08:55)
[2021-07-03] MEDS ORDERED: heparin 1,000 units/ml 10ml inj HE ONE ×2 (08:40→10:35)
[2021-07-03] MEDS ORDERED: heparin 1,000 units/ml 10ml inj SQ ONE (08:55)
[2021-07-03] MEDS ORDERED: LIDOcaine 1% (10mg/ml) 2ml vial ONE ×2 (09:38→09:40)
[2021-07-03] MEDS ORDERED: vancomycin/NS 1 GM ADD-VANTAGE 250 ML IV STA (09:56)
[2021-07-03] MEDS ORDERED: vancomycin/NS 1 GM ADD-VANTAGE 250 ML IV ONE (10:00)
[2021-07-03] MEDS ORDERED: morphine 2 MG/ML inj. syringe IV PRN (10:00)
[2021-07-03] MEDS ORDERED: vancomycin/NS 1 GM ADD-VANTAGE 250 ML IV PRN (10:05)
--- NOTE | 2021-07-03 10:47 | NUR ---
Initial: pt admitted w/ CAD, MAK w/ CKD, and hyperkalemia per EMR. Currently on Heart Healthy diet w/ 100% intake though dropped down to 0-25% yesterday 07/02, possibly related to some nausea. Would consider adding Renal diet and removing Heart healthy given elevated Potassium and renal function, and lipids are low. Pt to start HD today per MD note. Pt sleeping at time of assessment and did not wake to verbal cues. LBM 07/02 receiving routine colace. Will continue to monitor for nutrition intervention needs Recs: 1. Consider adding Renal diet and removing Heart Healthy 2. Monitor need for ONS, starting HD 3. Bowel care per rx 4. Scaled wts w/ HD Addendum: 07/03/21 at [address] Amended: Links added.
[2021-07-03 12:15] LABS: ALBUMIN 2.6 G/DL (3.4-5.0); ANION GAP 8 (8-16); BLOOD UREA NITROGEN 95 MG/DL (7-18); BUN/CREATININE RATIO 15.4 (5.4-32.0); CALCIUM 7.9 MG/DL (8.5-10.1); CHLORIDE 96 MMOL/L (99-107); CREATININE 6.18 MG/DL (0.60-1.10); GLUCOSE 120 MG/DL (70-104); SODIUM 130 MMOL/L (135-145); TOTAL CARBON DIOXIDE 26.4 MMOL/L (24-32); eGFR 9 ML/MIN
[2021-07-03 12:20] LABS: POTASSIUM 6.6 MMOL/L (3.5-5.1)
--- NOTE | 2021-07-03 12:34 | NUR ---
Paged hospitalist: PAGER ID: [phone] MESSAGE: Room: 3018A: Critical lab value: potassium 6.6. YUE Junior [id number]
--- NOTE | 2021-07-03 13:14 | NUR ---
Paged hospitalist: PAGER ID: [phone] MESSAGE: Room: 3018A: Derek: Pt's 1300 dose of furosemide is being held due to dialysis and a BP of 96/59. YUE Junior 9658
[2021-07-03] MEDS: ondansetron/PF 4mg/2ml inj IV PRN (16:04)
--- NOTE | 2021-07-03 18:40 | NUR ---
Problems reprioritized. Patient report given, questions answered & plan of care reviewed with YUE Pfeiffer.
[2021-07-03 20:20] LABS: ALBUMIN 2.7 G/DL (3.4-5.0); ANION GAP 13 (8-16); BLOOD UREA NITROGEN 44 MG/DL (7-18); BUN/CREATININE RATIO 11.3 (5.4-32.0); CALCIUM 8.4 MG/DL (8.5-10.1); CHLORIDE 96 MMOL/L (99-107); CREATININE 3.89 MG/DL (0.60-1.10); GLUCOSE 138 MG/DL (70-104); SODIUM 136 MMOL/L (135-145); TOTAL CARBON DIOXIDE 26.9 MMOL/L (24-32); eGFR 15 ML/MIN
[2021-07-03] MEDS: insulin glargine (Lantus) pen - multi-dose SQ SCH (21:36)
[2021-07-03] MEDS: HYDROcodone/acetaminophen 10/325mg tab PO PRN (23:07)
[2021-07-04 02:00] VITALS: BP 119/38
[2021-07-04] MEDS: VANCOMYCIN LEVEL IV SCH (03:00)
[2021-07-04] MEDS: albuterol 2.5 MG/3 ML nebule NEB SCH ×7 (03:26→23:42)
[2021-07-04 06:00] VITALS: BP 98/44
--- NOTE | 2021-07-04 06:30 | NUR ---
Patient in room PCU 3018. I have received report from YUE Pfeiffer and had the opportunity to ask questions and assume patient care.
--- NOTE | 2021-07-04 07:48 | NUR ---
PT REFUSED 0800 SVN. BS CLEAR, ROO0M AIR SPO2 94% WITHOUT SOB
[2021-07-04] MEDS: docusate sod 100mg capsule PO SCH ×2 (08:00→20:45)
[2021-07-04] MEDS: heparin, porcine 5000 units/ml vial SQ SCH ×2 (08:00→20:46)
[2021-07-04] MEDS: isosorbide mononitrate 30mg tab.SR.24H PO SCH (08:00)
[2021-07-04] MEDS: K and/or MAG REPLACEMENT MC SCH ×2 (08:00→18:58)
[2021-07-04] MEDS: furosemide 40mg/4ml inj IV SCH ×3 (08:00→20:46)
[2021-07-04] MEDS: fludrocortisone acetate 0.1mg tablet PO SCH ×2 (09:02→20:45)
[2021-07-04] MEDS: HYDROmorphone inj. 0.5 MG/0.5 ML DISP.SYRIN IV PRN ×3 (09:02→23:34)
[2021-07-04] MEDS: aspirin 325mg tablet PO SCH (09:03)
[2021-07-04] MEDS: ferrous gluconate 324mg tablet PO SCH (09:03)
[2021-07-04] MEDS: atorvastatin 20mg tablet PO SCH (09:03)
[2021-07-04] MEDS: clopidogrel 75mg tablet PO SCH (09:04)
[2021-07-04] MEDS: colchicine 0.6mg tablet PO SCH (09:07)
[2021-07-04] MEDS: finasteride 5mg tablet PO SCH (09:08)
[2021-07-04] MEDS ORDERED: heparin 1,000 units/ml 10ml inj IV ONE (09:15)
[2021-07-04] MEDS ORDERED: heparin 1,000unit/ml 10ml vial 10 ML IV ONE ×2 (09:15→09:20)
[2021-07-04] MEDS ORDERED: EPOETIN ALFA-EPBX 20,000 UNIT/ML 1 ML MDV IV ONE (09:15)
[2021-07-04] MEDS: tamsulosin 0.4mg capsule PO SCH ×2 (09:17→20:45)
[2021-07-04] MEDS ORDERED: normal saline 1000ml 250 ML IV PRN (09:20)
[2021-07-04] MEDS ORDERED: heparin 1,000 units/ml 10ml inj HE ONE ×3 (09:20→09:25)
--- NOTE | 2021-07-04 10:37 | NUR ---
Cris hospitalist: PAGER ID: [phone] MESSAGE: Room: 3018A: Derek: PARUL: The pt's informed me that the pt has a hepatology appointment with a Dr. Lu this Sunday. They have been waiting two years to see them. -Sandi RN [id number]
[2021-07-04 11:00] VITALS: BP 103/40
[2021-07-04 11:59] LABS: BASOPHILS % (AUTO) 0.6 % (0-1); EOSINOPHILS # (AUTO) 0.1 X10'3 (0-0.9); EOSINOPHILS % (AUTO) 2.9 % (0-6); HEMATOCRIT 24.5 % (42.0-52.0); HEMOGLOBIN 8.1 g/dl (14.0-17.9); LYMPHOCYTES # (AUTO) 0.2 X10'3 (1.1-4.8); LYMPHOCYTES % (AUTO) 7.9 % (21-51); MEAN CORPUSCULAR HEMOGLOBIN 32.1 PG (27.0-31.0); MEAN CORPUSCULAR VOLUME 97.3 FL (78-98); MEAN PLATELET VOLUME 9.1 FL (7.4-10.4); MONOCYTES # (AUTO) 0.5 X10'3 (0-0.9); MONOCYTES % (AUTO) 16.3 % (2-12); NEUTROPHILS # (AUTO) 2.3 X10'3 (1.8-7.7); NEUTROPHILS % (AUTO) 72.3 % (42-75); PLATELET COUNT 116 X10'3 (140-440); RED BLOOD COUNT 2.52 X10'6 (4.70-6.10); RED CELL DISTRIBUTION WIDTH 16.3 % (11.5-14.5); WHITE BLOOD COUNT 3.1 X10'3 (4.5-11.0)
[2021-07-04 12:16] LABS: ALANINE AMINOTRANSFERASE 26 U/L (12-78); ALBUMIN 2.6 G/DL (3.4-5.0); ALBUMIN/GLOBULIN RATIO 0.8 (1.1-1.5); ALKALINE PHOSPHATASE 74 IU/L (46-116); ANION GAP 4 (8-16); ASPARTATE AMINO TRANSFERASE 30 U/L (10-37); BILIRUBIN,TOTAL 0.3 MG/DL (0.1-1.0); BLOOD UREA NITROGEN 53 MG/DL (7-18); BUN/CREATININE RATIO 12.2 (5.4-32.0); CALCIUM 7.9 MG/DL (8.5-10.1); CHLORIDE 100 MMOL/L (99-107); CREATININE 4.33 MG/DL (0.60-1.10); GLUCOSE 189 MG/DL (70-104); POTASSIUM 4.8 MMOL/L (3.5-5.1); SODIUM 132 MMOL/L (135-145); TOTAL CARBON DIOXIDE 28.5 MMOL/L (24-32); TOTAL PROTEIN 5.8 G/DL (6.4-8.2); eGFR 13 ML/MIN
[2021-07-04 12:43] LABS: VANCOMYCIN,RANDOM 6.4 UG/ML
[2021-07-04 12:54] LABS: ANISOCYTOSIS 1+; PLATELET ESTIMATE DECREASED; TOTAL CELLS COUNTED 100
[2021-07-04 12:55] LABS: ELLIPTOCYTES FEW; TEAR DROP CELLS FEW
[2021-07-04] MEDS ORDERED: vancomycin/NS 1 GM ADD-VANTAGE 250 ML IV ONE (13:00)
--- NOTE | 2021-07-04 13:26 | NUR ---
PT REFUSED 1200 SVN. NO RESP. DISTRESS
[2021-07-04 15:00] VITALS: BP 102/47
--- NOTE | 2021-07-04 17:03 | NUR ---
`PT. STATES HE DOES NOT FEEL THE NEED FOR SVN
[2021-07-04 18:00] VITALS: BP 138/84
[2021-07-04] MEDS: insulin glargine (Lantus) pen - multi-dose SQ SCH (21:51)
[2021-07-04 22:00] VITALS: BP 100/44
[2021-07-05 02:00] VITALS: BP 109/41
[2021-07-05] MEDS: albuterol 2.5 MG/3 ML nebule NEB SCH ×2 (03:21→07:10)
[2021-07-05] MEDS: HYDROcodone/acetaminophen 10/325mg tab PO PRN ×6 (03:53→23:35)
[2021-07-05] MEDS: VANCOMYCIN LEVEL IV SCH (03:54)
[2021-07-05 04:54] LABS: EOSINOPHILS # (AUTO) 0.1 X10'3 (0-0.9); EOSINOPHILS % (AUTO) 3.7 % (0-6); HEMATOCRIT 28.7 % (42.0-52.0); HEMOGLOBIN 9.5 g/dl (14.0-17.9); LYMPHOCYTES # (AUTO) 0.3 X10'3 (1.1-4.8); LYMPHOCYTES % (AUTO) 11.6 % (21-51); MEAN CORPUSCULAR HEMOGLOBIN 32.4 PG (27.0-31.0); MEAN CORPUSCULAR HGB CONC 33.1 g/dL (33.0-36.5); MEAN PLATELET VOLUME 8.8 FL (7.4-10.4); MONOCYTES # (AUTO) 0.5 X10'3 (0-0.9); MONOCYTES % (AUTO) 17.8 % (2-12); NEUTROPHILS % (AUTO) 65.9 % (42-75); PLATELET COUNT 131 X10'3 (140-440); RED BLOOD COUNT 2.93 X10'6 (4.70-6.10); RED CELL DISTRIBUTION WIDTH 16.3 % (11.5-14.5)
[2021-07-05 05:07] LABS: ALANINE AMINOTRANSFERASE 28 U/L (12-78); ALBUMIN/GLOBULIN RATIO 0.8 (1.1-1.5); ALKALINE PHOSPHATASE 86 IU/L (46-116); ASPARTATE AMINO TRANSFERASE 32 U/L (10-37); BILIRUBIN,TOTAL 0.4 MG/DL (0.1-1.0); BLOOD UREA NITROGEN 29 MG/DL (7-18); BUN/CREATININE RATIO 10.9 (5.4-32.0); CALCIUM 8.4 MG/DL (8.5-10.1); CHLORIDE 101 MMOL/L (99-107); CREATININE 2.65 MG/DL (0.60-1.10); GLUCOSE 154 MG/DL (70-104); MAGNESIUM 1.8 MG/DL (1.5-2.4); PHOSPHORUS 3.7 MG/DL (2.3-4.5); POTASSIUM 3.8 MMOL/L (3.5-5.1); SODIUM 139 MMOL/L (135-145); TOTAL PROTEIN 6.7 G/DL (6.4-8.2); VANCOMYCIN,RANDOM 12.7 UG/ML; eGFR 24 ML/MIN
[2021-07-05 05:48] LABS: ANION GAP 11 (8-16); TOTAL CARBON DIOXIDE 27.3 MMOL/L (24-32)
[2021-07-05 06:00] VITALS: BP 112/33
--- NOTE | 2021-07-05 06:30 | NUR ---
Patient in room PCU 3018. I have received report from YUE Castellanos and had the opportunity to ask questions and assume patient care.
[2021-07-05] MEDS: K and/or MAG REPLACEMENT MC SCH ×2 (08:00→19:58)
[2021-07-05] MEDS: tamsulosin 0.4mg capsule PO SCH ×2 (08:10→21:07)
[2021-07-05] MEDS: isosorbide mononitrate 30mg tab.SR.24H PO SCH (08:10)
[2021-07-05] MEDS: aspirin 325mg tablet PO SCH (08:11)
[2021-07-05] MEDS: docusate sod 100mg capsule PO SCH ×2 (08:11→21:07)
[2021-07-05] MEDS: colchicine 0.6mg tablet PO SCH (08:11)
[2021-07-05] MEDS: clopidogrel 75mg tablet PO SCH (08:11)
[2021-07-05] MEDS: ferrous gluconate 324mg tablet PO SCH (08:12)
[2021-07-05] MEDS: finasteride 5mg tablet PO SCH (08:12)
[2021-07-05] MEDS: atorvastatin 20mg tablet PO SCH (08:13)
[2021-07-05] MEDS: fludrocortisone acetate 0.1mg tablet PO SCH ×2 (08:14→21:10)
[2021-07-05] MEDS ORDERED: HYDROcodone/acetaminophen 5mg/325mg tablet PO PRN (08:20)
[2021-07-05] MEDS: furosemide 40mg/4ml inj IV SCH ×2 (08:22→12:49)
[2021-07-05] MEDS ORDERED: vancomycin/NS 1 GM ADD-VANTAGE 250 ML X 1 DOSE IV ONE (09:00)
[2021-07-05 11:00] VITALS: BP 89/35
[2021-07-05 12:30] LABS: COMPLEMENT C4, SERUM 9 mg/dL (12-38); HBSAG SCREEN Negative (Negative); HEPATITIS C ANTIBODY >11.0 s/co ratio (0.0-0.9)
--- NOTE | 2021-07-05 14:07 | NUR ---
Paged hospitalist: PAGER ID: [phone] MESSAGE: Room: 9058A: Derek: Pt's BP is 103/33 (51) HR 78. He's endorsing dizziness. Would you like to give this pt IV fluids? -YUE Junior 6019
[2021-07-05 15:00] VITALS: BP 103/33
[2021-07-05] MEDS ORDERED: normal saline 500ml IV soln 500 ML IV ONE (15:30)
[2021-07-05] MEDS ORDERED: heparin 1,000 units/ml 10ml inj HE ONE ×2 (16:10)
[2021-07-05 17:50] LABS: TOTAL PROTEIN,URINE RANDOM 47.7 MG/DL
--- NOTE | 2021-07-05 18:21 | NUR ---
Orientation documentation: I have reviewed and agree with all interventions, assessments performed and documented by CACHORRO Massey.
--- NOTE | 2021-07-05 18:28 | NUR ---
Problems reprioritized. Patient report given, questions answered & plan of care reviewed with YUE Garay.
[2021-07-05 19:50] VITALS: BP 149/63
--- NOTE | 2021-07-05 21:00 | NUR ---
Patient refused his blood cultures to be drawn from R subclavian line. States that they did them earlier on each arm and wants to discuss reason for repeat from a different site with Dr. Garcia or Florin. Attempted to convey was what was told to me by AM nurse with use of progress notes and patient still refused.
[2021-07-05] MEDS: heparin, porcine 5000 units/ml vial SQ SCH ×2 (21:07→21:35)
[2021-07-05] MEDS: insulin glargine (Lantus) pen - multi-dose SQ SCH (21:35)
[2021-07-05 22:00] VITALS: BP 140/52
[2021-07-06] VITALS (7 sets, daily range): BP systolic 98–164; BP diastolic 59–79
[2021-07-06 01:03] LABS: COMPLEMENT C3, SERUM 88 mg/dL (82-167)
[2021-07-06] MEDS: VANCOMYCIN LEVEL IV SCH (03:00)
[2021-07-06 05:41] LABS: EOSINOPHILS # (AUTO) 0.1 X10'3 (0-0.9); HEMOGLOBIN 9.1 g/dl (14.0-17.9); MEAN CORPUSCULAR HGB CONC 32.8 g/dL (33.0-36.5); MONOCYTES # (AUTO) 0.4 X10'3 (0-0.9)
[2021-07-06 05:44] LABS: BASOPHILS % (AUTO) 1.2 % (0-1); EOSINOPHILS % (AUTO) 3.6 % (0-6); HEMATOCRIT 27.6 % (42.0-52.0); LYMPHOCYTES # (AUTO) 0.4 X10'3 (1.1-4.8); LYMPHOCYTES % (AUTO) 12.2 % (21-51); MEAN CORPUSCULAR HEMOGLOBIN 31.9 PG (27.0-31.0); MEAN CORPUSCULAR VOLUME 97.1 FL (78-98); MEAN PLATELET VOLUME 8.7 FL (7.4-10.4); MONOCYTES % (AUTO) 15.1 % (2-12); NEUTROPHILS % (AUTO) 67.9 % (42-75); PLATELET COUNT 141 X10'3 (140-440); RED BLOOD COUNT 2.84 X10'6 (4.70-6.10); RED CELL DISTRIBUTION WIDTH 15.8 % (11.5-14.5); WHITE BLOOD COUNT 2.9 X10'3 (4.5-11.0)
[2021-07-06 06:38] LABS: ALANINE AMINOTRANSFERASE 36 U/L (12-78); ALBUMIN 3.1 G/DL (3.4-5.0); ALBUMIN/GLOBULIN RATIO 0.9 (1.1-1.5); ALKALINE PHOSPHATASE 84 IU/L (46-116); ANION GAP 13 (8-16); ASPARTATE AMINO TRANSFERASE 42 U/L (10-37); BILIRUBIN,TOTAL 0.4 MG/DL (0.1-1.0); BLOOD UREA NITROGEN 35 MG/DL (7-18); BUN/CREATININE RATIO 14.2 (5.4-32.0); CHLORIDE 101 MMOL/L (99-107); CREATININE 2.47 MG/DL (0.60-1.10); GLUCOSE 91 MG/DL (70-104); MAGNESIUM 1.5 MG/DL (1.5-2.4); PHOSPHORUS 3.4 MG/DL (2.3-4.5); POTASSIUM 3.6 MMOL/L (3.5-5.1); SODIUM 140 MMOL/L (135-145); TOTAL PROTEIN 6.5 G/DL (6.4-8.2); VANCOMYCIN,RANDOM 16.1 UG/ML; eGFR 26 ML/MIN
[2021-07-06 06:53] LABS: TOTAL CELLS COUNTED 100
[2021-07-06 06:54] LABS: ANISOCYTOSIS 1+; MICROCYTOSIS FEW; PLATELET ESTIMATE DECREASED
[2021-07-06] MEDS: K and/or MAG REPLACEMENT MC SCH ×2 (08:00→19:53)
[2021-07-06] MEDS ORDERED: morphine 2 MG/ML inj. syringe IV ONE (09:55)
[2021-07-06] MEDS: aspirin 325mg tablet PO SCH (10:11)
[2021-07-06] MEDS: ferrous gluconate 324mg tablet PO SCH (10:11)
[2021-07-06] MEDS: docusate sod 100mg capsule PO SCH ×2 (10:12→20:10)
[2021-07-06] MEDS: fludrocortisone acetate 0.1mg tablet PO SCH ×2 (10:12→20:10)
[2021-07-06] MEDS: colchicine 0.6mg tablet PO SCH (10:12)
[2021-07-06] MEDS: clopidogrel 75mg tablet PO SCH (10:12)
[2021-07-06] MEDS: atorvastatin 20mg tablet PO SCH (13:55)
[2021-07-06] MEDS: HYDROcodone/acetaminophen 10/325mg tab PO PRN ×2 (13:55→20:12)
[2021-07-06] MEDS: heparin, porcine 5000 units/ml vial SQ SCH ×2 (13:55→20:13)
[2021-07-06] MEDS: isosorbide mononitrate 30mg tab.SR.24H PO SCH (13:56)
[2021-07-06] MEDS: finasteride 5mg tablet PO SCH (15:31)
[2021-07-06] MEDS: tamsulosin 0.4mg capsule PO SCH ×2 (15:31→20:10)
--- NOTE | 2021-07-06 17:48 | NUR ---
provider notification: Received critical lab, page sent to Dr. Sanchez at 1750 RM 3018F Gee Reed 1 of 2 positive blood cultures with gram positive cocci and clusters. Tita TURNER 1207 07/06/2021
[2021-07-06] MEDS: insulin glargine (Lantus) pen - multi-dose SQ SCH (22:48)
[2021-07-07 02:00] VITALS: BP 152/68
[2021-07-07] MEDS: OXAZEpam 15mg capsule PO PRN (02:34)
[2021-07-07] MEDS: VANCOMYCIN LEVEL IV SCH (03:00)
[2021-07-07 06:01] LABS: BASOPHILS % (AUTO) 1.1 % (0-1); EOSINOPHILS # (AUTO) 0.1 X10'3 (0-0.9); EOSINOPHILS % (AUTO) 2.5 % (0-6); HEMATOCRIT 28.1 % (42.0-52.0); HEMOGLOBIN 9.3 g/dl (14.0-17.9); LYMPHOCYTES # (AUTO) 0.3 X10'3 (1.1-4.8); LYMPHOCYTES % (AUTO) 11.1 % (21-51); MEAN CORPUSCULAR HEMOGLOBIN 32.8 PG (27.0-31.0); MEAN CORPUSCULAR HGB CONC 33.2 g/dL (33.0-36.5); MEAN CORPUSCULAR VOLUME 98.6 FL (78-98); MEAN PLATELET VOLUME 8.6 FL (7.4-10.4); MONOCYTES # (AUTO) 0.4 X10'3 (0-0.9); MONOCYTES % (AUTO) 11.3 % (2-12); NEUTROPHILS # (AUTO) 2.3 X10'3 (1.8-7.7); PLATELET COUNT 164 X10'3 (140-440); RED BLOOD COUNT 2.85 X10'6 (4.70-6.10); RED CELL DISTRIBUTION WIDTH 16.4 % (11.5-14.5); WHITE BLOOD COUNT 3.1 X10'3 (4.5-11.0)
[2021-07-07 06:36] LABS: ALANINE AMINOTRANSFERASE 37 U/L (12-78); ALBUMIN 3.5 G/DL (3.4-5.0); ALBUMIN/GLOBULIN RATIO 0.9 (1.1-1.5); ALKALINE PHOSPHATASE 89 IU/L (46-116); ANION GAP 13 (8-16); ASPARTATE AMINO TRANSFERASE 31 U/L (10-37); BILIRUBIN,TOTAL 0.5 MG/DL (0.1-1.0); BLOOD UREA NITROGEN 34 MG/DL (7-18); BUN/CREATININE RATIO 17.2 (5.4-32.0); CALCIUM 8.5 MG/DL (8.5-10.1); CHLORIDE 101 MMOL/L (99-107); CREATININE 1.98 MG/DL (0.60-1.10); GLUCOSE 111 MG/DL (70-104); MAGNESIUM 1.7 MG/DL (1.5-2.4); POTASSIUM 3.1 MMOL/L (3.5-5.1); SODIUM 140 MMOL/L (135-145); TOTAL CARBON DIOXIDE 26.4 MMOL/L (24-32); TOTAL PROTEIN 7.3 G/DL (6.4-8.2); VANCOMYCIN,RANDOM 12.8 UG/ML; eGFR 33 ML/MIN
[2021-07-07] MEDS: colchicine 0.6mg tablet PO SCH (07:54)
[2021-07-07] MEDS: atorvastatin 20mg tablet PO SCH (07:54)
[2021-07-07] MEDS: finasteride 5mg tablet PO SCH (07:54)
[2021-07-07] MEDS: fludrocortisone acetate 0.1mg tablet PO SCH (07:54)
[2021-07-07] MEDS: docusate sod 100mg capsule PO SCH (07:54)
[2021-07-07] MEDS: ferrous gluconate 324mg tablet PO SCH (07:55)
[2021-07-07] MEDS: heparin, porcine 5000 units/ml vial SQ SCH (07:55)
[2021-07-07] MEDS: clopidogrel 75mg tablet PO SCH (07:55)
[2021-07-07] MEDS: isosorbide mononitrate 30mg tab.SR.24H PO SCH (07:55)
[2021-07-07] MEDS ORDERED: vancomycin/NS 1 GM ADD-VANTAGE 250 ML IV ONE (08:00)
[2021-07-07] MEDS: aspirin 325mg tablet PO SCH (08:15)
[2021-07-07] MEDS: tamsulosin 0.4mg capsule PO SCH (08:15)
[2021-07-07 08:19] VITALS: BP 106/68
--- NOTE | 2021-07-07 08:39 | NUR ---
Reassessment: Pt continues on Heart Healthy diet w/ avg intake 70% x 10 meals meeting est nutrient needs at this time. Recommend liberalizing to Regular diet given lipids WNL w/ low HDL. Pt continues on HD, last treatment 07/04 w/ 3L out. LBM 07/05 receiving routine bowel care. No nutrition intervention implemented at this time. Will continue to monitor. intervention needs Recs: 1. Liberalize to Regular diet; lipids WNL w/ low HDL 2. Monitor need for ONS 3. Bowel care per rx 4. Scaled wts w/ HD Addendum: 07/07/21 at [address] Amended: Links added.
[2021-07-07] MEDS ORDERED: CLOP75TA34 PO ×2 (10:50)
[2021-07-07 11:00] VITALS: BP 124/67
== END 2021-07-07 14:48 | disposition home health service (06) | DRG 246 ==
LOC: ER 00:35 → ED HOLD 03:16 → EDBEDREQ 07:55 → PCU 3S 12:29
PROVIDERS: ADMIT Internal Medicine; ATTEND Family Medicine
PROC: 4A023N8 Measurement of Cardiac Sampling and Pressure, Bilateral, Percutaneous Approach (ICD-10-PCS; principal; 2021-06-29)
PROC: 027034Z Dilation of Coronary Artery, One Artery with Drug-eluting Intraluminal Device, Percutaneous Approach (ICD-10-PCS; 2021-06-29)
PROC: B2111ZZ Fluoroscopy of Multiple Coronary Arteries using Low Osmolar Contrast (ICD-10-PCS; 2021-06-29)
PROC: B2151ZZ Fluoroscopy of Left Heart using Low Osmolar Contrast (ICD-10-PCS; 2021-06-29)
PROC: B2131ZZ Fluoroscopy of Multiple Coronary Artery Bypass Grafts using Low Osmolar Contrast (ICD-10-PCS; 2021-06-29)
PROC: 5A1D70Z Performance of Urinary Filtration, Intermittent, Less than 6 Hours Per Day (ICD-10-PCS; 2021-07-04)
PROC: 5A1D70Z Performance of Urinary Filtration, Intermittent, Less than 6 Hours Per Day (ICD-10-PCS; 2021-07-05)
DX: T82.898A Other specified complication of vascular prosthetic devices, implants and grafts, initial encounter (principal); N17.0 Acute kidney failure with tubular necrosis; I13.0 Hypertensive heart and chronic kidney disease with heart failure and stage 1 through stage 4 chronic kidney disease, or unspecified chronic kidney disease; I50.32 Chronic diastolic (congestive) heart failure; I47.2 Ventricular tachycardia; I25.10 Atherosclerotic heart disease of native coronary artery without angina pectoris; E87.5 Hyperkalemia; N18.9 Chronic kidney disease, unspecified; I27.20 Pulmonary hypertension, unspecified; E11.22 Type 2 diabetes mellitus with diabetic chronic kidney disease; B19.20 Unspecified viral hepatitis C without hepatic coma; E78.5 Hyperlipidemia, unspecified; E87.6 Hypokalemia; G89.29 Other chronic pain; D50.9 Iron deficiency anemia, unspecified; I87.2 Venous insufficiency (chronic) (peripheral); M10.9 Gout, unspecified; K72.90 Hepatic failure, unspecified without coma; M19.90 Unspecified osteoarthritis, unspecified site; M25.551 Pain in right hip; M25.552 Pain in left hip; Y83.2 Surgical operation with anastomosis, bypass or graft as the cause of abnormal reaction of the patient, or of later complication, without mention of misadventure at the time of the procedure; N40.0 Benign prostatic hyperplasia without lower urinary tract symptoms; K74.60 Unspecified cirrhosis of liver; Z95.1 Presence of aortocoronary bypass graft; I25.2 Old myocardial infarction; Y92.89 Other specified places as the place of occurrence of the external cause; Z87.891 Personal history of nicotine dependence; Z98.61 Coronary angioplasty status; Z79.899 Other long term (current) drug therapy; Z79.82 Long term (current) use of aspirin; Z90.49 Acquired absence of other specified parts of digestive tract; I35.0 Nonrheumatic aortic (valve) stenosis
CPT/HCPCS: 93461; 99285; C9600; 36415; 71045; 76770; 76937; 80047; 80048; 80053; 80061; 80202; 81001; 82570; 82595; 82607; 82728; 82803; 82948; 83036; 83540; 83550; 83615; 83735; 83935; 84100; 84133; 84156; 84300; 84540; 84560; 85007; 85014; 85025; 85347; 85610; 85730; 86160; 86803; 87040; 87077; 87081; 87186; 87207; 87340; 90935; 93005; 94640; 94760; 97116; 97161; 97530; 99152; 99153; A4620; A5120; C1725; C1751; C1769; C1874; C1894; G0257; G0378; J1170; J1644; J1815; J1940; J2150; J2250; J2270; J2405; J3010; J3370; J3490; J7030; J7040; J7070; Q4081; Q9967

== ENCOUNTER 2021-07-15 07:06 | Day surgery (SDC) | payer MEDICARE, MEDICAID ==
[~2021-07-15] VITALS: Ht 167.6 cm; Wt 83.4 kg
[~2021-07-15 07:06] MED LIST changes: +ALLO300T8 PO; +BENA20TA83 PO; +CLOP75TA34 PO; +ERGO500056 PO; +FERR324T PO; +FINA5TAB11 PO; -FURO-149 PO; +FURO40TA4 PO; -GLIP5TAB13 PO; +ISOS30TA84 PO; -OXYC1TAB17 PO; +SPIR25TA5 PO
[2021-07-15] MEDS ORDERED: LIDOcaine 1%/PF 5ML 10 MG/ML VIAL IJ ONE (07:10)
[2021-07-15] MEDS ORDERED: CLOP75TA15 PO (07:27)
[2021-07-15 07:30] VITALS: BP 136/90
[2021-07-15] MEDS ORDERED: albumin 25% 100mL bottle x 1 IV PRN (07:30)
[2021-07-15 09:30] VITALS: BP 154/90
== END 2021-07-15 09:47 | disposition home or self-care (01) ==
LOC: SSTAY O 07:06
PROVIDERS: ATTEND Radiology Diagnostic Radiology
DX: R18.8 Other ascites (principal); Z53.8 Procedure and treatment not carried out for other reasons; R14.0 Abdominal distension (gaseous); I25.10 Atherosclerotic heart disease of native coronary artery without angina pectoris; I25.2 Old myocardial infarction; D64.9 Anemia, unspecified; E11.22 Type 2 diabetes mellitus with diabetic chronic kidney disease; N18.9 Chronic kidney disease, unspecified; Z98.890 Other specified postprocedural states; Z90.49 Acquired absence of other specified parts of digestive tract; Z95.1 Presence of aortocoronary bypass graft; Z87.891 Personal history of nicotine dependence; Z79.01 Long term (current) use of anticoagulants; Z79.82 Long term (current) use of aspirin; Z79.899 Other long term (current) drug therapy
CPT/HCPCS: 76705

== ENCOUNTER 2021-10-11 19:35 | Inpatient (IN) | payer MEDICARE, MEDICAID ==
[~2021-10-11] VITALS: Ht 162.6 cm; Wt 84.0 kg
[~2021-10-11 19:35] MED LIST changes: +CLOP75TA15 PO; -CLOP75TA34 PO; -SPIR25TA5 PO
--- NOTE | 2021-10-11 20:00 | NUR ---
PT WITH HYPOTENSION. MD NOTIFED. IVF FLUID BOLUS STARTED ON PRESSURE BAGS
[2021-10-11 20:10] LABS: BASOPHILS % (AUTO) 0.4 % (0-1); HEMATOCRIT 28.1 % (42.0-52.0); HEMOGLOBIN 9.5 g/dl (14.0-17.9); LYMPHOCYTES # (AUTO) 0.3 X10'3 (1.1-4.8); LYMPHOCYTES % (AUTO) 7.8 % (21-51); MEAN CORPUSCULAR HEMOGLOBIN 31.5 PG (27.0-31.0); MEAN CORPUSCULAR HGB CONC 33.8 g/dL (33.0-36.5); MEAN CORPUSCULAR VOLUME 93.5 FL (78-98); MEAN PLATELET VOLUME 9.6 FL (7.4-10.4); MONOCYTES # (AUTO) 0.3 X10'3 (0-0.9); MONOCYTES % (AUTO) 8.4 % (2-12); NEUTROPHILS % (AUTO) 82.4 % (42-75); PLATELET COUNT 115 X10'3 (140-440); RED CELL DISTRIBUTION WIDTH 16.3 % (11.5-14.5); WHITE BLOOD COUNT 3.7 X10'3 (4.5-11.0)
[2021-10-11] MEDS ORDERED: piperacillin/tazo 3.375gm/50ml 50 ML IV ONE (20:10)
[2021-10-11] MEDS ORDERED: normal saline 1000ML IV soln IV ONE (20:10)
[2021-10-11 20:29] LABS: ALANINE AMINOTRANSFERASE 19 U/L (12-78); ALKALINE PHOSPHATASE 62 IU/L (46-116); ANION GAP 10 (8-16); ASPARTATE AMINO TRANSFERASE 24 U/L (10-37); BILIRUBIN,TOTAL 0.3 MG/DL (0.1-1.0); BLOOD UREA NITROGEN 127 MG/DL (7-18); BUN/CREATININE RATIO 36.4 (5.4-32.0); CALCIUM 7.6 MG/DL (8.5-10.1); CHLORIDE 102 MMOL/L (99-107); CREATININE 3.49 MG/DL (0.60-1.10); GLUCOSE 258 MG/DL (70-104); SODIUM 132 MMOL/L (135-145); TOTAL CARBON DIOXIDE 20.1 MMOL/L (24-32); TOTAL PROTEIN 6.1 G/DL (6.4-8.2); eGFR 17 ML/MIN
[2021-10-11] MEDS ORDERED: insulin regular, human U-100 3ml vial - multi-dose IV ONE (21:10)
[2021-10-11] MEDS ORDERED: calcium chloride 100 MG/1 ML inj IV ONE (21:10)
[2021-10-11] MEDS ORDERED: insulin regular, human 10 units/0.1 ml syringe IV ONE (21:15)
[2021-10-11 21:31] LABS: CLARITY,URINE CLEAR (Clear); COLOR,URINE YELLOW (Yellow); GLUCOSE, URINE NEGATIVE (Neg); KETONES,URINE TRACE mg/dl (Neg); LEUKOCYTE ESTERASE ,URINE SMALL (Neg); NITRITES, URINE NEGATIVE (Neg); OCCULT BLOOD,URINE NEGATIVE (Neg); PH,URINE 5.5 (4.8-8.0); PROTEIN,URINE TRACE mg/dl (Neg); UROBILINOGEN,URINE 0.2 E.U/dL (0.2-1.0)
[2021-10-11 21:34] LABS: UA COLLECTION TYPE STRAIGHT CATH
[2021-10-11 21:38] LABS: BACTERIA,URINE FEW /HPF (Neg); MUCUS STRANDS FEW /LPF (Neg); RBC,URINE 0-2 /HPF (0-2); SQUAMOUS EPITHELIAL CELL,UR NONE SEEN /LPF (FEW)
[2021-10-11] MEDS ORDERED: magnesium Cl slow-release 64mg tablet PO PRN (22:40)
[2021-10-11] MEDS ORDERED: magnesium hydroxide 30ml (MOM) UD suspension PO PRN (22:40)
[2021-10-11] MEDS ORDERED: mag hydrox/Alum hydrox/simeth 30ml oral suspension PO PRN (22:40)
[2021-10-11] MEDS ORDERED: magnesium 4gm in 100ml NS 100 ML IV PRN (22:40)
[2021-10-11] MEDS ORDERED: potassium CL 10mEq/100ml bag 100 ML IV PRN (22:40)
[2021-10-11] MEDS ORDERED: PERFLUTREN PROTEIN-A MICROSPHR (Optison) 0.22 MG/ML 3ML VIAL IV ONE (22:40)
[2021-10-11] MEDS ORDERED: magnesium 2GM in 50ml NS 50 ML IV PRN (22:40)
[2021-10-11] MEDS ORDERED: acetaminophen 325mg tablet PO PRN (22:40)
[2021-10-11] MEDS ORDERED: ondansetron/PF 4mg/2ml inj IV PRN (22:40)
[2021-10-11] MEDS ORDERED: POTASSIUM BICARB 20meq eff tab 20 MEQ TABLET.EFF PO PRN ×2 (22:40)
[2021-10-11] MEDS: normal saline 1000ml 1,000 ML IV SCH (23:12)
[2021-10-11 23:51] LABS: MAGNESIUM 1.7 MG/DL (1.5-2.4); POTASSIUM 5.2 MMOL/L (3.5-5.1)
[2021-10-12] MEDS ORDERED: SOFO1TAB PO (00:46)
[2021-10-12] MEDS ORDERED: ASPI-955 PO (00:46)
[2021-10-12] MEDS ORDERED: GLIP5TAB13 PO (00:49)
[2021-10-12] MEDS ORDERED: VERA120T86 PO (00:49)
[2021-10-12] MEDS ORDERED: CARV6.253 PO (00:49)
[2021-10-12] MEDS ORDERED: SPIR25TA5 PO (00:49)
--- NOTE | 2021-10-12 06:32 | NUR ---
assumed care of patient. sleeping in bed with no acute distress or discomfort
--- NOTE | 2021-10-12 06:57 | NUR ---
Dx: hypotension, dehydration and renal refused AM labs Covid + initial K 6.0 q4 bgl assessments hx DM Htn Prostate
[2021-10-12] MEDS ORDERED: tamsulosin 0.4mg capsule PO SCH (08:00)
[2021-10-12] MEDS: aspirin 81mg, enteric-coated 1 TAB TABLET.DR PO SCH (08:00)
[2021-10-12] MEDS: K and/or MAG REPLACEMENT MC SCH ×2 (08:00→20:43)
[2021-10-12] MEDS ORDERED: aspirin 81mg, enteric-coated 1 TAB TABLET.DR PO SCH (08:00)
[2021-10-12] MEDS ORDERED: docusate sod 100mg capsule PO SCH (08:00)
[2021-10-12] MEDS: clopidogrel 75mg tablet PO SCH (08:10)
[2021-10-12] MEDS: finasteride 5mg tablet PO SCH (08:11)
[2021-10-12] MEDS: heparin, porcine 5000 units/ml vial SQ SCH ×2 (08:12→20:43)
--- NOTE | 2021-10-12 08:48 | NUR ---
took home tests at home to confirm cov +, no home oxygen needed
[2021-10-12] MEDS: normal saline 1000ml 1,000 ML IV SCH ×2 (08:49→20:42)
[2021-10-12] MEDS: tamsulosin 0.4mg capsule PO SCH ×2 (08:55→20:43)
--- NOTE | 2021-10-12 09:42 | NUR ---
patient allowed for labs to be drawn at this time
[2021-10-12 10:04] LABS: BASOPHILS % (AUTO) 0.3 % (0-1); EOSINOPHILS % (AUTO) 1.4 % (0-6); HEMATOCRIT 31.9 % (42.0-52.0); HEMOGLOBIN 10.6 g/dl (14.0-17.9); LYMPHOCYTES # (AUTO) 0.3 X10'3 (1.1-4.8); LYMPHOCYTES % (AUTO) 11.6 % (21-51); MEAN CORPUSCULAR HEMOGLOBIN 31.6 PG (27.0-31.0); MEAN CORPUSCULAR HGB CONC 33.3 g/dL (33.0-36.5); MEAN CORPUSCULAR VOLUME 94.9 FL (78-98); MEAN PLATELET VOLUME 8.9 FL (7.4-10.4); MONOCYTES # (AUTO) 0.3 X10'3 (0-0.9); MONOCYTES % (AUTO) 10.4 % (2-12); NEUTROPHILS % (AUTO) 76.3 % (42-75); PLATELET COUNT 105 X10'3 (140-440); RED BLOOD COUNT 3.36 X10'6 (4.70-6.10); WHITE BLOOD COUNT 2.6 X10'3 (4.5-11.0)
[2021-10-12 10:10] LABS: ALANINE AMINOTRANSFERASE 57 U/L (12-78); ALBUMIN 3.3 G/DL (3.4-5.0); ALBUMIN/GLOBULIN RATIO 0.9 (1.1-1.5); ALKALINE PHOSPHATASE 88 IU/L (46-116); ANION GAP 14 (8-16); ASPARTATE AMINO TRANSFERASE 50 U/L (10-37); BILIRUBIN,TOTAL 0.3 MG/DL (0.1-1.0); BLOOD UREA NITROGEN 110 MG/DL (7-18); BUN/CREATININE RATIO 40.3 (5.4-32.0); CALCIUM 8.6 MG/DL (8.5-10.1); CHLORIDE 108 MMOL/L (99-107); CREATININE 2.73 MG/DL (0.60-1.10); GLUCOSE 124 MG/DL (70-104); MAGNESIUM 1.7 MG/DL (1.5-2.4); POTASSIUM 5.1 MMOL/L (3.5-5.1); SODIUM 141 MMOL/L (135-145); TOTAL CARBON DIOXIDE 18.7 MMOL/L (24-32); TOTAL PROTEIN 6.9 G/DL (6.4-8.2); eGFR 23 ML/MIN
[2021-10-12 10:33] LABS: PLATELET ESTIMATE DECREASED; TOTAL CELLS COUNTED 100
[2021-10-12 10:34] LABS: BURR CELLS FEW; ELLIPTOCYTES 2+; SCHISTOCYTES FEW
--- NOTE | 2021-10-12 16:54 | NUR ---
patient complaining of nausea at this time.
--- NOTE | 2021-10-12 17:01 | NUR ---
patient using the restroom at this time.
--- NOTE | 2021-10-12 17:14 | NUR ---
patient complaining of nausea at this time, campus monitor showing frequent PVCs, hospitalist paged to be advised.
--- NOTE | 2021-10-12 19:49 | NUR ---
i was told in report by day time house sup. that this pt. has been positive for 14 [address] control [address] Lucia came to the ER and cleared the pt. from covid isolation
--- NOTE | 2021-10-12 19:52 | NUR ---
Patient in room ED 1. I have received report from Deb TURNER and had the opportunity to ask questions and assume patient care.
[2021-10-12 21:14] VITALS: BP 123/67
[2021-10-12 22:00] VITALS: BP 105/50
[2021-10-13] MEDS: normal saline 1000ml 1,000 ML IV SCH (04:23)
--- NOTE | 2021-10-13 06:18 | NUR ---
Problems reprioritized. Patient report given, questions answered & plan of care reviewed with Eleanor TURNER
[2021-10-13 06:22] LABS: BASOPHILS % (AUTO) 0.4 % (0-1); EOSINOPHILS % (AUTO) 0.7 % (0-6); HEMATOCRIT 28.2 % (42.0-52.0); HEMOGLOBIN 9.5 g/dl (14.0-17.9); LYMPHOCYTES # (AUTO) 0.2 X10'3 (1.1-4.8); LYMPHOCYTES % (AUTO) 8.9 % (21-51); MEAN CORPUSCULAR HEMOGLOBIN 31.7 PG (27.0-31.0); MEAN CORPUSCULAR HGB CONC 33.6 g/dL (33.0-36.5); MEAN CORPUSCULAR VOLUME 94.1 FL (78-98); MEAN PLATELET VOLUME 8.2 FL (7.4-10.4); MONOCYTES # (AUTO) 0.3 X10'3 (0-0.9); MONOCYTES % (AUTO) 11.1 % (2-12); NEUTROPHILS % (AUTO) 78.9 % (42-75); PLATELET COUNT 110 X10'3 (140-440); RED CELL DISTRIBUTION WIDTH 16.1 % (11.5-14.5); WHITE BLOOD COUNT 2.5 X10'3 (4.5-11.0)
--- NOTE | 2021-10-13 06:28 | NUR ---
Patient in room PCU 3023. I have received report from franko butler and had the opportunity to ask questions and assume patient care.
[2021-10-13 06:45] LABS: ALANINE AMINOTRANSFERASE 42 U/L (12-78); ALBUMIN 3.2 G/DL (3.4-5.0); ALBUMIN/GLOBULIN RATIO 0.9 (1.1-1.5); ALKALINE PHOSPHATASE 79 IU/L (46-116); ANION GAP 11 (8-16); ASPARTATE AMINO TRANSFERASE 35 U/L (10-37); BILIRUBIN,TOTAL 0.3 MG/DL (0.1-1.0); BLOOD UREA NITROGEN 83 MG/DL (7-18); BUN/CREATININE RATIO 43.7 (5.4-32.0); CALCIUM 8.6 MG/DL (8.5-10.1); CHLORIDE 112 MMOL/L (99-107); GLUCOSE 118 MG/DL (70-104); MAGNESIUM 1.5 MG/DL (1.5-2.4); POTASSIUM 5.1 MMOL/L (3.5-5.1); SODIUM 142 MMOL/L (135-145); TOTAL CARBON DIOXIDE 19.1 MMOL/L (24-32); TOTAL PROTEIN 6.7 G/DL (6.4-8.2); eGFR 35 ML/MIN
[2021-10-13 07:08] VITALS: BP 115/53
[2021-10-13] MEDS: K and/or MAG REPLACEMENT MC SCH (07:54)
[2021-10-13] MEDS: clopidogrel 75mg tablet PO SCH (08:00)
[2021-10-13] MEDS: aspirin 81mg, enteric-coated 1 TAB TABLET.DR PO SCH (08:00)
[2021-10-13] MEDS: heparin, porcine 5000 units/ml vial SQ SCH (08:01)
--- NOTE | 2021-10-13 08:35 | NUR ---
PAGED DR JUAN RE: PAGER ID: [phone] MESSAGE: MIGUEL ANGEL CARMONA. HAVING MULTIPLE RUNS OF V-TACH. CLAUDIA 5499 TELE EKG ORDERED
[2021-10-13] MEDS: finasteride 5mg tablet PO SCH (08:39)
--- NOTE | 2021-10-13 08:57 | NUR ---
NOTIFIED DR JUAN RE ABNORMAL EKG. STATES SHE WILL BE TO THE FLOOR TO ASSESS IT.
[2021-10-13 09:00] LABS: TOTAL CELLS COUNTED 100
--- NOTE | 2021-10-13 09:00 | NUR ---
Malnutrition consult: Pt admitted w/ Covid and hypotension per EMR. Pt reports 2-13lb wt loss per MST, current wt greater than previous wt on prior admit last June. No visible muscle or fat wasting reported, no edema noted and pt w/ normal muscle strength. Currently on Heart Healthy diet pending PO. At this time pt does not meet minimum criteria for malnutrition. Will continue to monitor Addendum: 10/13/21 at [address] Amended: Links added.
[2021-10-13 09:01] LABS: ANISOCYTOSIS 1+; ELLIPTOCYTES 1+; PLATELET ESTIMATE DECREASED
[2021-10-13 09:02] LABS: SCHISTOCYTES FEW
[2021-10-13 09:03] LABS: BURR CELLS FEW
[2021-10-13 12:15] VITALS: BP 122/58
[2021-10-13] MEDS ORDERED: FURO40TA4 PO (12:22)
[2021-10-13] MEDS ORDERED: tamsulosin capsule PO (12:35)
[2021-10-13] MEDS ORDERED: BENA10TA75 PO (12:37)
--- NOTE | 2021-10-13 14:21 | NUR ---
PT DISCHARGED IN STABLE CONDITION. LEFT FACILITY IN PRIVATE WITH . IV DC CANULA INTACT. FOLLOW UP INSTRUCTIONS GIVEN, PT HAS FOLLOW UP APPT MADE WITH DR HOOPER. ALL BELONGINGS IN HAND INCLUDING WALLET AND CELL PHONE. Addendum: 10/13/21 at 1423 by Katie Razo RN Amended: Links added.
--- NOTE | 2021-10-25 10:05 | NUR ---
Case Management DC follow up: Left V/M with name, telephone number, and reason for call.
== END 2021-10-13 14:15 | disposition home or self-care (01) | DRG 682 ==
LOC: ER 19:36 → ED HOLD 22:43 → PCU 3S 10-12 20:00
PROVIDERS: ADMIT Internal Medicine; ATTEND Internal Medicine
DX: N17.9 Acute kidney failure, unspecified (principal); U07.1 COVID-19; I13.0 Hypertensive heart and chronic kidney disease with heart failure and stage 1 through stage 4 chronic kidney disease, or unspecified chronic kidney disease; I47.2 Ventricular tachycardia; I95.9 Hypotension, unspecified; E11.22 Type 2 diabetes mellitus with diabetic chronic kidney disease; E11.65 Type 2 diabetes mellitus with hyperglycemia; E86.0 Dehydration; N18.9 Chronic kidney disease, unspecified; I25.10 Atherosclerotic heart disease of native coronary artery without angina pectoris; E87.5 Hyperkalemia; B19.20 Unspecified viral hepatitis C without hepatic coma; E78.5 Hyperlipidemia, unspecified; G89.4 Chronic pain syndrome; I08.3 Combined rheumatic disorders of mitral, aortic and tricuspid valves; R00.1 Bradycardia, unspecified; K76.9 Liver disease, unspecified; I87.2 Venous insufficiency (chronic) (peripheral); I44.1 Atrioventricular block, second degree; R11.0 Nausea; I50.9 Heart failure, unspecified; M19.90 Unspecified osteoarthritis, unspecified site; N40.0 Benign prostatic hyperplasia without lower urinary tract symptoms; Z78.9 Other specified health status; Z86.73 Personal history of transient ischemic attack (TIA), and cerebral infarction without residual deficits; Z87.891 Personal history of nicotine dependence; I25.2 Old myocardial infarction; Z90.49 Acquired absence of other specified parts of digestive tract; Z95.1 Presence of aortocoronary bypass graft; Z98.61 Coronary angioplasty status; Z79.899 Other long term (current) drug therapy; Z79.82 Long term (current) use of aspirin
CPT/HCPCS: 36415; 71045; 80053; 81001; 82948; 83605; 83735; 84132; 84145; 84484; 85007; 85025; 87040; 87081; 87088; 87635; 93005; 93306; 97116; 97162; 99291; C1758; C9803; G0378; J1644; J1815; J2405; J2543; J3490; J7030

== ENCOUNTER 2021-12-26 06:17 | Day surgery (SDC) | payer MEDICARE, MEDICAID ==
[2021-12-26] VITALS (8 sets, daily range): BP systolic 102–116; BP diastolic 56–80
[~2021-12-26] VITALS: Ht 167.6 cm; Wt 92.6 kg
[~2021-12-26 06:17] MED LIST changes: -ASPI-1264 PO; +ASPI-955 PO; +BENA10TA75 PO; -BENA20TA83 PO; +CARV6.253 PO; -COLC0.6T72 PO; -ERGO500056 PO; -FLO0.4C PO; +tamsulosin capsule PO
[2021-12-26] MEDS ORDERED: LIDOcaine 1%/PF 5ML 10 MG/ML VIAL SQ ONE (06:25)
[2021-12-26] MEDS ORDERED: FURO80TA87 PO (06:48)
[2021-12-26] MEDS ORDERED: BENA5TAB PO (06:48)
[2021-12-26] MEDS ORDERED: FLO0.4C PO (06:48)
[2021-12-26] MEDS ORDERED: GLIP5TAB13 PO (06:48)
[2021-12-26] MEDS ORDERED: albumin 25% 100mL bottle x 1 IV PRN (06:50)
== END 2021-12-26 09:35 | disposition home or self-care (01) ==
LOC: SSTAY O 06:17
PROVIDERS: ATTEND Radiology Diagnostic Radiology
DX: R18.8 Other ascites (principal); I25.10 Atherosclerotic heart disease of native coronary artery without angina pectoris; I25.2 Old myocardial infarction; D64.9 Anemia, unspecified; N18.9 Chronic kidney disease, unspecified; E11.22 Type 2 diabetes mellitus with diabetic chronic kidney disease; Z90.49 Acquired absence of other specified parts of digestive tract; Z98.890 Other specified postprocedural states; Z87.891 Personal history of nicotine dependence; Z79.899 Other long term (current) drug therapy; Z88.8 Allergy status to other drugs, medicaments and biological substances
CPT/HCPCS: 49083; J3490; P9047; A6258; A6449

== ENCOUNTER 2021-12-28 15:40 | Emergency (ER) | payer MEDICARE, MEDICAID ==
[~2021-12-28] VITALS: Ht 167.6 cm; Wt 90.9 kg
[~2021-12-28 15:40] MED LIST changes: -BENA10TA75 PO; +BENA5TAB PO; -FERR324T PO; +FLO0.4C PO; -FURO40TA4 PO; +FURO80TA87 PO; +GLIP5TAB13 PO; -ISOS30TA84 PO; -tamsulosin capsule PO
--- NOTE | 2021-12-28 16:07 | NUR ---
DR. LOBATO AT BEDSIDE.
--- NOTE | 2021-12-28 16:20 | NUR ---
LAB AT BEDSIDE.
[2021-12-28 16:35] LABS: BASOPHILS % (AUTO) 0.8 % (0-1); EOSINOPHILS # (AUTO) 0.1 X10'3 (0-0.9); EOSINOPHILS % (AUTO) 2.6 % (0-6); HEMATOCRIT 28.6 % (42.0-52.0); HEMOGLOBIN 9.4 g/dl (14.0-17.9); LYMPHOCYTES # (AUTO) 0.4 X10'3 (1.1-4.8); MEAN CORPUSCULAR HEMOGLOBIN 31.7 PG (27.0-31.0); MEAN CORPUSCULAR HGB CONC 32.9 g/dL (33.0-36.5); MEAN CORPUSCULAR VOLUME 96.5 FL (78-98); MEAN PLATELET VOLUME 8.4 FL (7.4-10.4); MONOCYTES # (AUTO) 0.4 X10'3 (0-0.9); MONOCYTES % (AUTO) 8.6 % (2-12); NEUTROPHILS # (AUTO) 3.9 X10'3 (1.8-7.7); PLATELET COUNT 127 X10'3 (140-440); RED BLOOD COUNT 2.96 X10'6 (4.70-6.10); RED CELL DISTRIBUTION WIDTH 15.9 % (11.5-14.5); WHITE BLOOD COUNT 4.9 X10'3 (4.5-11.0)
[2021-12-28 16:55] LABS: ALANINE AMINOTRANSFERASE 13 U/L (12-78); ALBUMIN 3.4 G/DL (3.4-5.0); ALBUMIN/GLOBULIN RATIO 1.3 (1.1-1.5); ALKALINE PHOSPHATASE 51 IU/L (46-116); ANION GAP 11 (8-16); ASPARTATE AMINO TRANSFERASE 22 U/L (10-37); BILIRUBIN,TOTAL 0.5 MG/DL (0.1-1.0); BLOOD UREA NITROGEN 118 MG/DL (7-18); BUN/CREATININE RATIO 52.7 (5.4-32.0); CALCIUM 8.6 MG/DL (8.5-10.1); CHLORIDE 103 MMOL/L (99-107); CREATININE 2.24 MG/DL (0.60-1.10); GLUCOSE 152 MG/DL (70-104); LIPASE 156 U/L (73-393); POTASSIUM 4.5 MMOL/L (3.5-5.1); SODIUM 137 MMOL/L (135-145); TOTAL CARBON DIOXIDE 23.1 MMOL/L (24-32); eGFR 29 ML/MIN
[2021-12-28 17:24] LABS: CLARITY,URINE CLEAR (Clear); COLOR,URINE YELLOW (Yellow); GLUCOSE, URINE NEGATIVE (Neg); KETONES,URINE NEGATIVE (Neg); LEUKOCYTE ESTERASE ,URINE SMALL (Neg); NITRITES, URINE NEGATIVE (Neg); OCCULT BLOOD,URINE NEGATIVE (Neg); PH,URINE 5.5 (4.8-8.0); PROTEIN,URINE NEGATIVE (Neg); UROBILINOGEN,URINE 0.2 E.U/dL (0.2-1.0)
[2021-12-28 17:48] LABS: UA COLLECTION TYPE CLN CATCH MIDSTREAM
[2021-12-28 17:52] LABS: RBC,URINE NONE SEEN /HPF (0-2)
[2021-12-28 17:53] LABS: BACTERIA,URINE FEW /HPF (Neg)
[2021-12-28 17:56] LABS: HYALINE CASTS 0-3 /LPF (NEGATIVE); SQUAMOUS EPITHELIAL CELL,UR NONE SEEN /LPF (FEW)
[2021-12-28 19:49] VITALS: BP 103/71
[2021-12-28] MEDS ORDERED: ringers solution, lactated 500ml IV solution IV ONE (21:05)
== END 2021-12-28 21:49 | disposition home or self-care (01) ==
LOC: ER 15:41
DX: I95.9 Hypotension, unspecified (principal); D64.9 Anemia, unspecified; I13.10 Hypertensive heart and chronic kidney disease without heart failure, with stage 1 through stage 4 chronic kidney disease, or unspecified chronic kidney disease; E13.22 Other specified diabetes mellitus with diabetic chronic kidney disease; N18.9 Chronic kidney disease, unspecified; Z88.1 Allergy status to other antibiotic agents; Z79.899 Other long term (current) drug therapy; Z79.82 Long term (current) use of aspirin; Z79.1 Long term (current) use of non-steroidal anti-inflammatories (NSAID); Z79.84 Long term (current) use of oral hypoglycemic drugs
CPT/HCPCS: 36415; 80053; 81001; 83690; 85025; 87088; 93005; 99284

== ENCOUNTER 2022-01-06 07:34 | Day surgery (SDC) | payer MEDICARE, MEDICAID ==
[~2022-01-06] VITALS: Ht 167.6 cm; Wt 93.5 kg
[2022-01-06] VITALS (8 sets, daily range): BP systolic 99–113; BP diastolic 41–67
[2022-01-06] MEDS ORDERED: MIDODRINE 10 MG (07:59)
[2022-01-06] MEDS ORDERED: albumin 25% 100mL bottle x 1 IV PRN (08:00)
== END 2022-01-06 10:35 | disposition home or self-care (01) ==
LOC: SSTAY O 07:34
PROVIDERS: ATTEND Radiology Vascular & Interventional Radiology
DX: R18.8 Other ascites (principal); I25.10 Atherosclerotic heart disease of native coronary artery without angina pectoris; I25.2 Old myocardial infarction; D64.9 Anemia, unspecified; E11.22 Type 2 diabetes mellitus with diabetic chronic kidney disease; N18.9 Chronic kidney disease, unspecified; Z90.49 Acquired absence of other specified parts of digestive tract; Z87.891 Personal history of nicotine dependence; Z98.890 Other specified postprocedural states; Z79.899 Other long term (current) drug therapy; Z86.19 Personal history of other infectious and parasitic diseases; Z95.5 Presence of coronary angioplasty implant and graft
CPT/HCPCS: 49083; C1729; P9047; A6258

== ENCOUNTER 2022-01-26 09:03 | Day surgery (SDC) | payer MEDICARE, MEDICAID ==
[~2022-01-26] VITALS: Ht 167.6 cm; Wt 88.5 kg
[~2022-01-26 09:03] MED LIST changes: -CARV6.253 PO; +MIDODRINE 10 MG
[2022-01-26] MEDS ORDERED: FURO40TA4 PO (09:35)
[2022-01-26] MEDS ORDERED: LIDOcaine 1% 30ml preserv. free vial IJ STA (09:36)
[2022-01-26 09:40] VITALS: BP 91/66
[2022-01-26] MEDS ORDERED: albumin 25% 100mL bottle x 1 IV PRN (09:40)
[2022-01-26 09:51] VITALS: BP 98/63
[2022-01-26 10:06] VITALS: BP 75/54
[2022-01-26 10:22] VITALS: BP 91/62
[2022-01-26 10:36] VITALS: BP 97/65
[2022-01-26 10:53] VITALS: BP 102/60
== END 2022-01-26 11:05 | disposition home or self-care (01) ==
LOC: SSTAY O 09:03
PROVIDERS: ATTEND Radiology Vascular & Interventional Radiology
DX: R18.8 Other ascites (principal); I25.10 Atherosclerotic heart disease of native coronary artery without angina pectoris; I25.2 Old myocardial infarction; N18.9 Chronic kidney disease, unspecified; Z86.19 Personal history of other infectious and parasitic diseases; Z90.49 Acquired absence of other specified parts of digestive tract; Z98.890 Other specified postprocedural states; Z95.5 Presence of coronary angioplasty implant and graft; Z79.899 Other long term (current) drug therapy; Z88.8 Allergy status to other drugs, medicaments and biological substances; Z79.01 Long term (current) use of anticoagulants; Z79.82 Long term (current) use of aspirin
CPT/HCPCS: 49083; P9047; A6258

== ENCOUNTER 2022-02-03 08:13 | Day surgery (SDC) | payer MEDICARE, MEDICAID ==
[~2022-02-03] VITALS: Ht 261.6 cm; Wt 91.4 kg
[2022-02-03] VITALS (7 sets, daily range): BP systolic 90–105; BP diastolic 51–58
[~2022-02-03 08:13] MED LIST changes: -FLO0.4C PO; +FURO40TA4 PO; -FURO80TA87 PO; +LIDOcaine 1% 30ml preserv. free vial IJ STA
[2022-02-03] MEDS ORDERED: albumin 25% 100mL bottle x 1 IV PRN (08:35)
== END 2022-02-03 10:45 | disposition home or self-care (01) ==
LOC: SSTAY O 08:13
PROVIDERS: ATTEND Radiology Diagnostic Radiology
DX: R18.8 Other ascites (principal); I25.10 Atherosclerotic heart disease of native coronary artery without angina pectoris; I25.2 Old myocardial infarction; D64.9 Anemia, unspecified; E11.22 Type 2 diabetes mellitus with diabetic chronic kidney disease; N18.9 Chronic kidney disease, unspecified; Z86.19 Personal history of other infectious and parasitic diseases; Z90.49 Acquired absence of other specified parts of digestive tract; Z98.890 Other specified postprocedural states; Z79.899 Other long term (current) drug therapy
CPT/HCPCS: 49083; J3490; P9047; A6258; A6449

== ENCOUNTER 2022-02-14 08:39 | Day surgery (SDC) | payer MEDICARE, MEDICAID ==
[~2022-02-14] VITALS: Ht 167.6 cm; Wt 88.4 kg
[2022-02-14] VITALS (8 sets, daily range): BP systolic 84–96; BP diastolic 52–60
[~2022-02-14 08:39] MED LIST changes: -LIDOcaine 1% 30ml preserv. free vial IJ STA; +LIDOcaine 1% 30ml preserv. free vial SQ STA
[2022-02-14] MEDS ORDERED: LIDOcaine 1% 30ml preserv. free vial SQ STA (08:43)
[2022-02-14] MEDS ORDERED: albumin 25% 100mL bottle x 1 IV PRN (09:35)
== END 2022-02-14 11:00 | disposition home or self-care (01) ==
LOC: SSTAY O 08:39
PROVIDERS: ATTEND Radiology Vascular & Interventional Radiology
DX: R18.8 Other ascites (principal); I25.10 Atherosclerotic heart disease of native coronary artery without angina pectoris; I25.2 Old myocardial infarction; D64.9 Anemia, unspecified; E11.22 Type 2 diabetes mellitus with diabetic chronic kidney disease; N18.9 Chronic kidney disease, unspecified; Z86.19 Personal history of other infectious and parasitic diseases; Z90.49 Acquired absence of other specified parts of digestive tract; Z79.899 Other long term (current) drug therapy; Z98.890 Other specified postprocedural states
CPT/HCPCS: 49083; J3490; P9047; A6258